=== PATIENT | female | born 1995 | race Caucasian/White ===

== ENCOUNTER → 2016-08-23 | Outpatient (CLI) | payer BC ==
--- NOTE | 2016-08-23 16:33 | DIAGNOSTIC IMAGING REPORT ---
PA CHEST WITH LEFT-SIDED RIB SERIES CLINICAL HISTORY: Left-sided chest wall mass. FINDINGS: A PA chest radiograph with 4 additional views from a left-sided rib series is compared to study dated 06/26/2011. The cardiomediastinal silhouette is unremarkable. The lungs and pleural spaces are clear. No pneumothorax is seen. The left ribs are normal on the rib series. The remainder of the bony thorax is grossly intact. IMPRESSION: 1. No active disease in the chest. 2. Unremarkable radiographic assessment of the left ribs. No change from the 06/26/2011 examination. Electronically signed by: Anthony Rust M.D. 08/23/2016 4:32 PM Dictated Date/Time: 08/23/2016 4:30 PM
== END | disposition home or self-care (01) ==
LOC: C.RAD 16:02
PROVIDERS: ATTEND Nurse Practitioner Family
DX: R22.2 Localized swelling, mass and lump, trunk (principal)

== ENCOUNTER → 2016-10-02 | Outpatient (CLI) | payer BC ==
--- NOTE | 2016-10-02 13:03 | DIAGNOSTIC IMAGING REPORT ---
(CHEST) THORAX WITHOUT CLINICAL HISTORY: 20 years-old Female presenting with MASS ON CHEST. TECHNIQUE: Multidetector CT angiography was performed without the use of intravenous contrast. IV contrast: None. COMPARISON: None. CT DOSE: The estimated cumulative dose is 175.02 mGycm. FINDINGS: [facility] topogram: Unremarkable On soft tissue windows, normal thyroid and thoracic inlet. No axillary, supraclavicular, or mediastinal lymphadenopathy. Evaluation for hilar lymphadenopathy is limited without use of intravenous contrast. Normal heart size. No pericardial or pleural effusion. Normal noncontrast appearance of the upper abdomen. The chest wall is normal appearing with normal breast tissue. No chest wall mass identified. On lung windows, few polygonal subpleural opacities in the right middle lobe, the largest measuring 4 mm (series 4 image 199). No other focal infiltrate. Airways patent. On bone windows, benign hemangioma noted in the T6 vertebral body. Osseous structures otherwise normal. IMPRESSION: No acute intrathoracic pathology. No chest wall mass. Electronically signed by: Sukhdev Santamaria 10/02/2016 1:02 PM Dictated Date/Time: 10/02/2016 12:51 PM
== END | disposition home or self-care (01) ==
LOC: C.CTS 12:01
PROVIDERS: ATTEND Nurse Practitioner Family
DX: R22.2 Localized swelling, mass and lump, trunk (principal)

== ENCOUNTER → 2016-10-16 | Outpatient (CLI) | payer BC ==
--- NOTE | 2016-10-16 15:02 | DIAGNOSTIC IMAGING REPORT ---
BONE SCAN WHOLE BODY HISTORY: Nodule pain RADIOTRACER: 25.114 mCi Tc-99m MDP STUDY/IMAGES: Planar anterior and posterior whole body imaging was performed 3 hours following the intravenous administration of radiotracer. COMPARISON: CT same date FINDINGS: Increased activity of several ribs bilaterally. This involves the anterior left sixth seventh and ninth ribs. There is also increased activity of the right anterior 10th and 12th ribs. Given the linear configuration of these findings these are felt to be posttraumatic. Activity characteristics of the remainder the axial and appendicular skeleton appear unremarkable. There is no abnormal soft tissue activity characteristics. IMPRESSION: Increased activity of several anterior ribs bilaterally as described. It is presumed to be posttraumatic in nature. The above report was generated using voice recognition software. It may contain grammatical, syntax or spelling errors. Electronically signed by: Heron Ford M.D. 10/16/2016 3:01 PM Dictated Date/Time: 10/16/2016 2:58 PM
== END | disposition home or self-care (01) ==
LOC: C.NUCL 10:51
PROVIDERS: ATTEND Family Medicine
DX: R22.2 Localized swelling, mass and lump, trunk (principal)

== ENCOUNTER 2021-08-08 07:44 | Inpatient (IN) ==
[2021-08-08] MEDS ORDERED: OXYTOCIN 30 UNITS/500 ML BAG IV PRN ×3 (07:46→14:55)
--- NOTE | 2021-08-08 08:12 | History & Physical Report ---
Date of Service August 08, 2021 Assessment & Plan (1) IUGR (intrauterine growth restriction) affecting care of mother: Plan: 25 y/o G1 at 37 1/7 wga presenting for IOL for severe FGR VSS Fetus cat 1 Labor - will start pit GBS neg epidural PRN Admission and Anticipated Discharge Date Admission Date: August 08, 2021 History of Present Illness Chief Complaint: IOL for severe FGR Primary Care Provider: NO PCP 25 y/o G1 at 37 1/7 wga presents for IOL for severe FGR. 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 Hx: G1 q28-29d cycles 04/2018 neg cyto Allergies Allergy/AdvReac Type Severity Reaction Status Date / Time banana Allergy Intermediate Swelling Verified 08/04/21 10:40 around Lips to Nose Home Medications Medication Instructions Recorded Confirmed Type prenat.vits,donny,[id number]-cngl-mptto 1 tab PO DAILY 06/07/21 08/04/21 History iron polysacch cplx 150 mg 1 cap PO DAILY #30 cap 06/13/21 08/04/21 Rx iron-vit B12 25 mcg-folic acid 1 mg capsule (iFerex) Patient History Medical History No chronic diseases present Surgical History No significant past surgical history Family History Other Colorectal cancer Diabetes Endometriosis Heart disease Multiple sclerosis Social History Smoking Status: Current every day smoker Tobacco Type: Cigarettes and E-cigarettes / Vaping Cigarettes Per Day: 10; Second Hand Exposure: Yes; Hx Alcohol Use: No Hx Substance Use: No Preferred Language: Italian marital status: Single marital status details: Wojciech Muniz [phone] Current Living Situation: Significant Other Current Living Situation Comment: lives with FOB, 1 dog. current occupational status: unemployed Feels Safe at Home: Yes Physical Exam Genitourinary: OB Exam Abdomen: + vertex and + estimated weight (5-6) Manual OB Exam: + cervical dilation 3 cm, + cervical effacement 70% and + station -2 OB Exam Monitor Tracing: + external FHT monitor used, + external uterine monitor used (irreg ctx) and + category I (140/mod/+accel/-decel) Results & Data ([facility]) Vital Signs (Past 12 Hours) Vital Signs Pulse BP 08/08/21 07:53 102 H 123/80 Laboratory Results OB Labs: Blood Type O Positive 06/07/21 Antibody Screen NEGATIVE 06/07/21 Hemoglobin 11.4 g/dL (12.0-16.0) L 06/07/21 Hematocrit 35.0 % (37-47) L 06/07/21 Mean Corpuscular Volume 89.5 fL (80-100) 06/07/21 Platelet Count 261 K/uL (130-400) 06/07/21 Rubella IgG Antibody Immune (Immune) 06/07/21 Rapid Plasma Reagin Nonreactive (Nonreactive) 06/07/21 Glucose 1 Hour 50 gm Load 114 mg/dl (70-130) 06/07/21 OB Optional Labs: Chlamydia trachomatis RNA NOT DETECTED (NOT DETECTED) 06/13/21 Neisseria gonorrhoeae RNA NOT DETECTED (NOT DETECTED) 06/13/21 GBS neg Diagnostic Findings 08/04 EFW 2122 <2%, AC <2% Coding Level of Care Code None Diagnoses IUGR (intrauterine growth restriction) affecting care of mother O36.5990
[2021-08-08 08:28] LABS: Hematocrit (blood only) 34.1 % (37-47); Mean Corpuscular Hemoglobin 27.8 pg (25-34); Mean Corpuscular Hgb Conc 32.3 g/dL (32-36); Mean Corpuscular Volume 86.3 fL (80-100); Mean Platelet Volume 11.4 fL (7.4-10.4); Platelet Count 251 K/uL (130-400); RDW Coefficient of Variation 14.3 % (11.5-14.5); RDW Standard Deviation 45.1 fL (36.4-46.3); Red Blood Count 3.95 M/uL (4.2-5.4)
[2021-08-08] MEDS: LACTATED RINGER'S 1,000 ML IV PRN ×2 (08:45→10:53)
[2021-08-08] MEDS ORDERED: BUPIVACAINE 0.25% 30 ML VIAL ONE ×2 (10:05→13:21)
[2021-08-08] MEDS ORDERED: fentaNYL citrate 100 MCG/2 ML VIAL ONE (10:05)
[2021-08-08] MEDS ORDERED: SODIUM CHLORIDE 0.9% INJ 10 ML VIAL ONE (10:05)
[2021-08-08] MEDS ORDERED: ePHEDrine sulfate 50 MG/ML AMP ONE (10:05)
[2021-08-08] MEDS ORDERED: fentaNYL 2MCG/ML ROPIVACAINE 1.25MG/ML 100 ML BAG EPI ONE (10:06)
[2021-08-08] MEDS ORDERED: ePHEDrine sulfate 50 MG/ML AMP IV PRN (10:20)
[2021-08-08] MEDS ORDERED: ONDANSETRON INJ 2 MG/ML 2 ML VIAL IV PRN (10:20)
[2021-08-08] MEDS ORDERED: NALOXONE HCL 1 MG in SODIUM CHLORIDE 0.9% 1000ML 1,000 ML IV PRN (10:20)
[2021-08-08] MEDS ORDERED: diphenhydrAMINE 50 MG/ML VIAL IV PRN (10:20)
[2021-08-08] MEDS ORDERED: NALOXONE HCL 0.4 MG/1 ML VIAL/CARP IV PRN (10:20)
[2021-08-08] MEDS ORDERED: NALBUPHINE HCL INJ 10 MG/ML AMP IV PRN (10:20)
[2021-08-08] MEDS ORDERED: fentaNYL 2MCG/ML ROPIVACAINE 1.25MG/ML 100 ML BAG EPI PRN (10:20)
--- NOTE | 2021-08-08 10:21 | Anesthesiology Consultation ---
Date of Service August 08, 2021 Assessment & Plan (1) Encounter for pre-operative examination: Chart Review Chart Review: Patient NOT seen in Pre Admission Testing and Acceptable Risk for Labor Epidural Consults Requested none History Height/Weight Height: 5 ft 2 in Weight: 53.524 kg Allergies Allergy/AdvReac Type Severity Reaction Status Date / Time banana Allergy Intermediate Swelling Verified 08/04/21 10:40 around Lips to Nose Medications Home Medications Medication Instructions Recorded Confirmed Last Taken prenat.vits,donny,xzx-emza-womos 1 tab PO DAILY 06/07/21 08/08/21 08/05/21 Active Medications Generic Name Dose Route Start Last Admin Trade Name Freq PRN Reason Stop Dose Admin Oxytocin 30 units in 500 mls @ 2 mls/hr 08/08/21 07:46 08/08/21 09:34 Pitocin IV 08/10/21 07:45 0.12 units/hr .Q24H PRN 2 mls/hr Labor Induction/Augmentation Administration Protocol 0.12 UNITS/HR Lactated Ringer's 1,000 mls @ 125 mls/hr 08/08/21 07:46 08/08/21 08:45 Lr IV 08/10/21 07:45 125 mls/hr .Q8H PRN Administration L&D Protocol Protocol Past Medical History Medical History No chronic diseases present high functioning autism Exercise / Class Metabolic Activity II 4-5 Yardwork/Stairs/Walk up hill Past Family History Family History Other Colorectal cancer Diabetes Endometriosis Heart disease Multiple sclerosis Past Surgical History Surgical History No significant past surgical history Past Anesthesia History No Hx of Anesthesia Complications and No Family Hx of Anesthesia Complications Social History Smoking Status: Current every day smoker tobacco type: cigarettes Smoking cigarettes per day: 10 Hx Alcohol Use: No Hx Substance Use: No substance use type: does not use Physical Exam Vital Signs Last Vital Signs Temp 36.9 C 08/08/21 08:04 Pulse 116 H 08/08/21 10:42 Resp 18 08/08/21 08:04 BP 135/95 08/08/21 10:41 Pulse Ox 97 08/08/21 10:42 Testing Laboratory Results 08/08/21 08:10
--- NOTE | 2021-08-08 12:10 | Labor Progress Brief Note ---
Date of Service August 08, 2021 Subjective Reason For Note: Routine Evaluation comfortable with epidural analgesia Assessment & Plan (1) IUGR (intrauterine growth restriction) affecting care of mother: Plan: AROM for clear fluid contiue pitocin induction Admission and Anticipated Discharge Date Admission Date: August 08, 2021 Physical Exam Constitutional: WD/WN, vitals as above Psychiatric: A+Ox3, euthymic affect Genitourinary: OB Exam Abdomen: + vertex and + regular contractions (3-5 minutes) Manual OB Exam: + cervical dilation 3 cm, + cervical effacement 70% and + station -1 OB Exam Monitor Tracing: + external FHT monitor used, + external uterine monitor used, + category I and + normal FHT variability AROM for clear fluid Results & Data ([facility]) Vital Signs (Past 12 Hours) Vital Signs Temp Pulse Resp BP Pulse Ox 08/08/21 12:02 101 H 100 08/08/21 11:57 98 H 114/76 100 08/08/21 11:52 87 99 08/08/21 11:47 90 100 08/08/21 11:42 107 H 117/68 100 08/08/21 11:37 99 H 100 08/08/21 11:32 97 H 100 08/08/21 11:30 97.9 F 18 08/08/21 11:27 98 H 120/70 99 08/08/21 11:22 101 H 100 08/08/21 11:17 92 H 99 08/08/21 11:12 91 H 100 08/08/21 11:11 96 H 116/81 08/08/21 11:09 116 H 109/72 08/08/21 11:08 103 H 104/59 L 08/08/21 11:07 104 H 99 08/08/21 11:03 113 H 102/67 08/08/21 11:02 117 H 100 08/08/21 11:01 99 H 94/59 L 08/08/21 10:59 97 H 107/66 08/08/21 10:57 111 H 102/59 L 99 08/08/21 10:55 98 H 18 103/56 L 08/08/21 10:53 99 H 18 108/64 08/08/21 10:52 101 H 98 08/08/21 10:51 110 H 18 113/67 08/08/21 10:49 102 H 18 111/57 L 08/08/21 10:47 122 H 18 117/58 L 99 08/08/21 10:45 96 H 18 123/57 L 08/08/21 10:42 116 H 97 08/08/21 10:41 110 H 135/95 08/08/21 10:37 141 H 95 08/08/21 10:32 123 H 99 08/08/21 10:31 116 H 132/89 08/08/21 10:27 95 H 99 08/08/21 08:04 98.4 F 18 08/08/21 07:53 98.4 F 102 H 18 123/80 Coding Level of Care Code None Diagnoses IUGR (intrauterine growth restriction) affecting care of mother O36.5990
[2021-08-08] MEDS ORDERED: HYDROCORTISONE ACETATE 25 MG SUPP PR PRN (14:55)
[2021-08-08] MEDS ORDERED: DIPHTHERIA/TETANUS/PERTUSSIS 0.5 ML SYR/VIAL IM ONE (14:55)
[2021-08-08] MEDS ORDERED: BENZOCAINE 20% AER SPR 82.5 GM CAN EXT PRN (14:55)
[2021-08-08] MEDS ORDERED: bisacodyL 10 MG SUPP PR PRN (14:55)
[2021-08-08] MEDS ORDERED: ACETAMINOPHEN 325 MG TAB PO PRN (14:55)
--- NOTE | 2021-08-08 15:23 | Delivery Summary ---
Vaginal Delivery Summary Date of Service August 08, 2021 Vaginal Delivery Summary VAVD and 1st Degree LAC Patient is a 25-year-old mildly autistic nulligravida white female who presented for induction of labor because of severe IUGR at 37-1/7 weeks. After Pitocin augmentation was begun she requested epidural analgesia which was effective. Membranes were ruptured for clear fluid at 4 cm dilation. She became very uncomfortable again and her epidural was redosed. Shortly after the redosing, she was noted to be fully dilated with the head at +1 station. At this point there were moderate to severe variables with each contraction to 60 bpm. There was good recovery in between the contractions. Patient was coached on pushing but had no sensation and therefore was not able to push effectively. The head came down almost purely with contractile force to +3 station. The severe vari cristina continued and because of poor maternal effort, it was felt prudent to proceed with vacuum-assisted delivery. Patient was agreeable to proceeding in this manner. Straight catheterization of the bladder was attempted but because the head was low, the catheter could not be advanced. The vacuum was then placed on the head taking care to be free of the vaginal bray. With the next contraction the head was delivered to . There was no nuchal cord present. Rest of the was delivered easily and placed on the mother's abdomen for further attention and drying. The infant was crying and moving all 4 limbs. After 1 minute the cord was clamped and cut. The placenta was then expressed intact with a three-vessel cord after cord blood was obtained. A first-degree perineal laceration was repaired with 3-0 chromic in the usual fashion. bleeding was controlled with dilute Pitocin and fundal massage. Estimated blood loss is 250 cc. Mother and were doing well after delivery. [place] Vaginal Delivery Charge Delivery Type Details: VAVD and 1st Degree LAC
--- NOTE | 2021-08-08 17:15 | Anesthesia Procedure Note ---
Date of Service August 08, 2021 Anesthesia Post Epidural Note Vital Signs Vital Signs: Temp Pulse Resp BP Pulse Ox 36.6 C 111 H 18 118/75 89 L 08/08/21 11:30 08/08/21 17:11 08/08/21 15:35 08/08/21 17:11 08/08/21 14:28 Pain Intensity Back: Pain Intensity: 9 Notes Mental Status: alert / awake / arousable and participated in evaluation Patient Amnestic to Procedure: No Nausea / Vomiting: adequately controlled Pain: adequately controlled Airway Patency, RR, SpO2: stable & adequate BP & HR: stable & adequate Hydration State: stable & adequate Neuraxial Anesthesia: was administered and sensory block is resolving Anesthetic Complications: no major complications apparent and Pt Satisfied with anesthetic care Epidural: Removed without complications and With tip intact
[2021-08-08] MEDS: DOCUSATE SODIUM 100 MG CAP PO SCH (19:43)
[2021-08-08] MEDS: IBUPROFEN 600 MG TAB PO PRN ×2 (19:44→23:51)
[2021-08-09] MEDS: IBUPROFEN 600 MG TAB PO PRN ×3 (04:10→21:34)
--- NOTE | 2021-08-09 06:49 | Obstetrical Progress Note ---
Date of Service <Sony Orona DO - Last Filed: 08/09/21 08:00> August 09, 2021 Assessment & Plan <Sony Orona DO - Last Filed: 08/09/21 08:00> (1) Encounter for care and examination after delivery: 25 yo post day 1 from vaginal delivery, doing well. -Continue routine post care. -vital signs reviewed and WNL. (Tmax 37.0) -Blood type O+, GBS negative, Rubella immune -Encourage ambulation, monitor and control pain with Motrin, tylenol PRN, resume regular diet, monitor lochia. -encourage breast feeding. -Case management involved for complex situation for discharge. <Claudy Davies MD - Last Filed: 08/09/21 08:14> (1) Encounter for care and examination after delivery: Subjective <Sony Orona DO - Last Filed: 08/09/21 08:00> Ambulation: ambulating normally Voiding: no voiding problems Passing Gas:: Yes Diet Tolerance:: regular diet Lochia:: Small Feeding Type:: breast feeding Current Pain Level(1-10): 0 Review of Systems Denies fever, chills, sweats Denies shortness of breath, difficulty breathing, chest pain, palpitations, chest pressure. Denies breast pain. Denies dysuria. Denies headache or changes in vision Physical Exam <Sony Orona DO - Last Filed: 08/09/21 08:00> General: Alert, oriented. No acute distress. Cardiac: Regular rate and rhythm, no murmurs/rubs/gallops. Respiratory: Clear to auscultation bilaterally a/p, no wheezes/rales/rhonchi. No increased work of breathing. Symmetrical chest rise. No respiratory distress. Abdomen: Soft, nontender, nondistended. Bowel sounds present. Uterus: Uterine fundus firm, palpable 1 cm below umbilicus. Lower Extremities: No lower extremity edema or swelling. No deep calf pain. Malu's negative bilaterally Results & Data ([facility]) <Sony Orona DO - Last Filed: 08/09/21 08:00> Vital Signs (Past 12 Hours) Vital Signs Temp Pulse Resp BP Pulse Ox 08/09/21 04:00 36.5 C 79 16 102/77 100 08/08/21 23:00 36.8 C 103 H 16 116/68 98 08/08/21 20:00 36.8 C 98 H 16 118/78 99 <Claudy Davies MD - Last Filed: 08/09/21 08:14> Co-Signing Physician Notes Patient seen and evaluated and agree with the above findings and plan. Routine care. Social work involved with discharge planning. Resident Activity Tracking <Sony Orona DO - Last Filed: 08/09/21 08:00> Resident Involvement: Resident Care Provided Care Provided: OB Delivery
[2021-08-09 08:03] LABS: Hematocrit (blood only) 32.2 % (37-47); Hemoglobin 10.3 g/dL (12.0-16.0); Mean Corpuscular Hemoglobin 27.2 pg (25-34); Mean Corpuscular Volume 85.2 fL (80-100); Mean Platelet Volume 11.4 fL (7.4-10.4); Platelet Count 212 K/uL (130-400); RDW Coefficient of Variation 14.6 % (11.5-14.5); RDW Standard Deviation 45.7 fL (36.4-46.3); Red Blood Count 3.78 M/uL (4.2-5.4); White Blood Count 19.69 K/uL (4.8-10.8)
[2021-08-09] MEDS: PRENATAL VITAMIN 1 TAB PO SCH (09:05)
[2021-08-09] MEDS: FERROUS SULFATE 325 MG TAB PO SCH (09:05)
[2021-08-09] MEDS: DOCUSATE SODIUM 100 MG CAP PO SCH ×2 (09:05→21:34)
[2021-08-09] MEDS ORDERED: bisacodyL 5 MG TABEC PO SCH (20:00)
[2021-08-10] MEDS: IBUPROFEN 600 MG TAB PO PRN ×3 (04:05→15:07)
--- NOTE | 2021-08-10 06:23 | Obstetrical Progress Note ---
Date of Service <Sony Oroan DO - Last Filed: 08/10/21 08:09> August 10, 2021 Assessment & Plan <Sony Orona DO - Last Filed: 08/10/21 08:09> (1) Encounter for care and examination after delivery: 25 yo post day 2 from vaginal delivery, doing well. -Continue routine post care. -vital signs reviewed and WNL. (Tmax 37.0) -Blood type O+, GBS negative, Rubella immune -Encourage ambulation, monitor and control pain with Motrin, tylenol PRN, resume regular diet, monitor lochia. -encourage breast feeding. -Case management involved for complex situation for discharge. CYS to follow closely upon discharge to ensure safety of , patient set up with [facility] home health for assistance. -Patient will follow up with Dr. Soler in clinic in 6 weeks. <Betsy Alcantara MD, FACOG - Last Filed: 08/10/21 08:15> (1) Encounter for care and examination after delivery: Subjective <Sony Orona DO - Last Filed: 08/10/21 08:09> Ambulation: ambulating normally Voiding: no voiding problems Passing Gas:: Yes Diet Tolerance:: regular diet Lochia:: Small Feeding Type:: breast feeding Current Pain Level(1-10): 0 Review of Systems Denies fever, chills, sweats Denies shortness of breath, difficulty breathing, chest pain, palpitations, chest pressure. Denies breast pain. Denies dysuria. Denies headache or changes in vision Physical Exam <Sony Orona DO - Last Filed: 08/10/21 08:09> General: Alert, oriented. No acute distress. Cardiac: Regular rate and rhythm, no murmurs/rubs/gallops. Respiratory: Clear to auscultation bilaterally a/p, no wheezes/rales/rhonchi. No increased work of breathing. Symmetrical chest rise. No respiratory distress. Abdomen: Soft, nontender, nondistended. Bowel sounds present. Uterus: Uterine fundus firm, palpable 2 cm below umbilicus. Lower Extremities: No lower extremity edema or swelling. No deep calf pain. Malu's negative bilaterally Results & Data ([facility]) <Sony Orona DO - Last Filed: 08/10/21 08:09> Vital Signs (Past 12 Hours) Vital Signs Temp Pulse Pulse Resp BP Pulse Ox 08/10/21 00:40 36.8 C 85 20 103/64 98 08/09/21 20:55 36.8 C 100 H 20 109/72 100 <Betsy Alcantara MD, FACOG - Last Filed: 08/10/21 08:15> Co-Signing Physician Notes Resident Physician Supervision Note: I interviewed and examined the patient. Discussed with Dr. Felix and agree with findings and plan as documented in the note. Any exceptions or blaire fications are listed here: Plan d/c today. CYS and social worker school involved. Plan for baby to go home with patient and CYS closely following. Discussed d/c instructions. Encouraged to call with any concerns. Documented By: Betsy Alcantara MD, FACOG Resident Activity Tracking <Sony Orona DO - Last Filed: 08/10/21 08:09> Resident Involvement: Resident Care Provided Care Provided: OB Delivery
[2021-08-10 06:44] LABS: Hematocrit (blood only) 33.2 % (37-47); Hemoglobin 10.5 g/dL (12.0-16.0)
[2021-08-10] MEDS: PRENATAL VITAMIN 1 TAB PO SCH (09:03)
[2021-08-10] MEDS: DOCUSATE SODIUM 100 MG CAP PO SCH (09:03)
[2021-08-10] MEDS: FERROUS SULFATE 325 MG TAB PO SCH (09:03)
== END 2021-08-10 19:45 | disposition home or self-care (01) | DRG 806 ==
LOC: 4S1 07:44 → 4E2 17:59

== ENCOUNTER 2024-05-13 17:54 | Inpatient (IN) ==
[2024-05-13] MEDS: OXYTOCIN 10 UNITS/ML VIAL IM ONE (18:06)
[2024-05-13] MEDS: METHYLERGONOVINE MALEATE 0.2 MG/ML AMP ONE (18:11)
[2024-05-13] MEDS: OXYTOCIN 30 UNITS/NSS 30 UNITS/500 ML BAG IV PRN (18:20)
[2024-05-13] MEDS ORDERED: METHYLERGONOVINE MALEATE 0.2 MG/ML AMP IM PRN (18:27)
[2024-05-13] MEDS ORDERED: LIDOCAINE 1% LOCAL 20 ML VIAL INFIL PRN (18:27)
[2024-05-13] MEDS ORDERED: LACTATED RINGER'S 1,000 ML IV PRN (18:27)
[2024-05-13] MEDS ORDERED: CALCIUM CARBONATE 500 MG CHEWABLE TAB PO PRN (18:27)
[2024-05-13] MEDS ORDERED: HYDROCORTISONE ACETATE 25 MG SUPP PR PRN (18:30)
[2024-05-13] MEDS ORDERED: OXYTOCIN 30 UNITS/NSS 30 UNITS/500 ML BAG IV PRN (18:30)
[2024-05-13] MEDS ORDERED: bisacodyL 10 MG SUPP PR PRN (18:30)
[2024-05-13] MEDS ORDERED: OXYTOCIN 10 UNITS/ML 10ML VIAL IM ONE (18:30)
[2024-05-13] MEDS ORDERED: oxyCODONE/ACETAMINOPHEN 5mg/325mg TAB PO PRN (18:30)
--- NOTE | 2024-05-13 18:36 | Delivery Summary ---
Vaginal Delivery Summary Date of Service May 13, 2024 Vaginal Delivery Summary Patient is a 2 para 2 followed at [facility] for care and delivery. Been well dated with a first trimester ultrasound. Comes in at a gestational age of 37 weeks 1 day. Head was on the perineum she had a precipitous delivery. With IM Pitocin the placenta was removed intact. There was a right sided periurethral laceration. And a small midline laceration. Both of these areas were infiltrated with local. And then the defects were approximated with a running 2-0 Vicryl. Following this hemostasis was achieved. A Landa catheter was used to empty the bladder. Calculated blood loss was 100 mL. Patient tolerated procedure well.
[2024-05-13] MEDS: LIDOCAINE 1% LOCAL 20 ML VIAL ONE (18:40)
[2024-05-13] MEDS: METHYLERGONOVINE MALEATE 0.2 MG/ML AMP IM ONE (18:43)
[2024-05-13] MEDS: ACETAMINOPHEN W/CODEINE #3 1 TAB PO PRN (19:08)
[2024-05-13] MEDS: DIPHTHER/TETAN/PERTUS Vaccine (Tdap, Adol/Adult) 0.5mL IM ONE (19:10)
[2024-05-13 19:28] LABS: Hematocrit (blood only) 37.7 % (37.0-47.0); Hemoglobin 11.3 g/dl (12.0-16.0); Mean Corpuscular Hemoglobin 24.8 pg (25.0-34.0); Mean Corpuscular Volume 82.9 fL (80.0-100.0); Mean Platelet Volume 11.3 fL (9.4-12.4); Platelet Count 299 K/uL (130-400); RDW Coefficient of Variation 17.4 % (11.5-14.5); RDW Standard Deviation 51.8 fL (36.4-46.3); Red Blood Count 4.55 M/uL (4.20-5.40); White Blood Count 33.68 K/ul (4.8-10.8)
[2024-05-13] MEDS: DOCUSATE SODIUM 100 MG CAP PO SCH (21:00)
[2024-05-13] MEDS: BENZOCAINE 20% SPRY 85 APPLN/85 GM CAN EXT PRN (23:43)
--- OUTSIDE RECORDS SUMMARY | 2024-05-14 02:50 | External Medical Summary | Summary of Care ---
Author Name Unknown Organization [facility] Address [address] [place] [address] Phone [phone] Care Team Providers Care Statistician Mathematical Name Role Phone Unavailable Primary Care Provider Unavailabl e Reason for Visit * Reason Onset Date Comments Anemia Follow-Up 04/30/2024 * Evaluate & Treat - Unlimited Visits (Within 10 days (routine)) - Pending Review Specialty Diagnoses / Procedures Referred By Cassy t Referred To Contact Pharmacist / Pharmacy Diagnoses KATHERYN (iron deficiency anemia) Grace Rain CRNP [address] [place] [address] Phone: tel: fax: Referral ID Status Reason Start Date Expiration Date Visits Requested Visits Authorized [id number] Pending Review Specialty Services Required 04/24/2024 10/21/[phone] Encounter Details Date Type Department Care Team (Late st Contact Info) Description 04/30/2024 4:00 PM EST Pharmacy Pharmacy, [facility] [address] [place], [place] [id number] Clinic, Anemia [address] [place] [address] Iron deficiency anemia, unspecified iron deficiency anemia type* Allergies Active Allergy Reactions Criticality Noted Date Comments Food (See Comments) 08/11/2003 Banana allergy documented as of this encounter (statuses as of 05/01/2024) Medications Forte Oral Tablet Take by mouth. Active Iron-Vitamin C 65-125 MG Oral Tablet (Vitron C)Indications:Ant epartum anemia complicating Take 1 Tablet by mouth in the morning and 1 Tablet before bedtime. 60 Tablet 3 4 Active documented as of this encounter (statuses as of 05/01/2024) Active Problems Problem Noted Date Diagnosed Date Iron deficiency anemia 04/30/2024 Food insecurity 04/07/2024 Overview: Per [facility] Protocol Antepartum anemia complicating 024 Overview (02/14/2024): Hgb 11.0, Ferrtin 11 with NOB at 23 weeks. Started on Vitron C BID Repeat labs with third tri labs Short cervix during in second trimeste r 02/13/2024 Overview (02/13/2024): Cervix 2 cm with dating ultrasound at 23 weeks. Reviewed with patient. Discussed increase risk of labor and demise with prematurity. Recommended MFM referral, she was agreeable. Assessment & Plan (03/04/2024 11:57 AM EST): At your request, Livia was seen today due to short cervix seen on outside imaging. Report and images reviewed. Cervix ~2 cm at that time. Today cervix relatively stable at 1.8 cm without funneling. First delivery at [facility]; unsure exact gestational age but "near term" and weight 5#3 oz. We reviewed that based on current gestational age, no indication for ongoing cervical evaluation as there is no indication for intervention (cerclage/progesterone) at this time. PTL/PPROM precautions given and Livia encouraged to communicate any s/sx with her OB team as physical exam will be more important High-risk 02/13/2024 History of delivery, currently 02/13/2024 Overview (02/13/2024): Last delivery at [place]. From dates given pt would have delivered at 36w6d. Late care affecting in second trimester 02/13/2024 Overview (02/13/2024): NOB at 23 weeks Tobacco use affecting , antepartum 01/25 Overview (02/13/2024): Has cut back. Recommended she quit. Smoking 1 cigar a day at NOB Estimated Date of Delivery Comme nts Yes 06/11/2024 Based on Ultraso und documented as of this encounter (statuses as of 05/01/2024) Immunizations Name Administration Dates Next Due Hepatitis A, Ped/Adol., 18 y ear and below, 2-Dose 09/29/2005 Seasonal Influenza Vac., MDV , IM, 0.5 mL (Fluzone) 01/05/2011,01/28/2010,02/05/2007, 006 TDAP, Age 7 and older, IM (Adacel) 09/29/2005 Varicella Vaccine (Chicken Pox) 06/16/2011 documented as of this encounter Social History Tobacco Use Types Packs/Day Years Used Date Smoking Tobacco: Never Smokeless Tobacco: Never Alcohol Use Standard Drinks/Week Comments Not Asked 0 (1 standard drink = 0.6 oz pur e alcohol) Hunger Vital Sign Answer Date Recorded Within the past 12 months, y ou worried that your food would run out before you got the money to buy more. Sometimes true Within the past 12 months, t he food you bought just didn't last and you didn't have money to get more. Sometimes true [place] Depression Scale Answer Date Recorded [place] Depression Scale Total 13 04/17/2024 The thought of harming myself has occurred to me . Never 04/17/2024 Childcare Answer Date Recorded Do you feel overwhelmed with taking care of a child, family member or friend? Yes 03/12/2024 Does your family need help f inding childcare? (Household - for ages 0-17 years) Not on file 03/12/2024 Clothing Answer Date Recorded Have you been unable to get clothing when it was really needed? No 03/12/2024 Is your family able to get c lothes or diapers when needed? (Household - for ages 0-17 years) Not on file 03/12/2024 Personal Safety Answer Date Recorded Do you feel unsafe or have concerns for your saf ety? No 03/12/2024 Do you have concerns for you r family's safety? (Household - for ages 0-17 years) Not on file 03/12/2024 Utilities Answer Date Recorded Do you have trouble paying y our heating, water, or electric bill? No 03/12/2024 Is your family able to pay t he heat, water, or electric bill? (Household - for ages 0-17 years) Not on file 03/12/2024 Does your family have access to good internet? (Household - for ages 0-17 years) Not on file 03/12/2024 Employment Status Answer Date Recorded Are you unemployed or without regular income? Ye s 03/12/2024 Does the household have a re gular source of income? (Household - for ages 0-17 years) Not on file 03/12/2024 Social Connections Answer Date Recorded How often do you feel lonely or isolated from th ose around you? Rarely 03/12/2024 Financial Resource Strain Answer Date R ecorded Do you have any trouble payi ng for your medications, or do you think you might in the future? Yes 03/12/2024 Does your family have troubl e paying for medicine? (Household - for ages 0-17 years) Not on file 03/12/2024 Transportation Needs Answer Date Record ed Do you have trouble getting a ride to medical visits or work? (Adult - for ages 18 years and over) Not on file 03/12/2024 Does your family have a hard time getting a ride to doctors visits? (Household - for ages 0-17 years) Not on file 03/12/2024 Has lack of transportation k ept you from medical appointments, meetings, work, or from getting things needed for daily living? Check all that apply. Yes, it has kept me from medical appointments;Yes, it has kept me from non-medical meetings, appointments, work, or from getting things that I need 03/12/2024 Do you (or your family) have trouble finding or paying for a ride (transportation)? (Household - for ages 0-17 years) Not on file 03/12/2024 Housing Stability Answer Date Recorded Do you currently live in a s helter or have no steady place to sleep at night? No 03/12/2024 Do you think you are at risk of becoming homeless? (Adult - for ages 18 years and over) Not on file 03/12/2024 Does your family worry about paying for your home or becoming homeless? (Household - for ages 0-17 years) Not on file 1 05/13/2023 Are you homeless or worried that you might be in the future? No 03/12/2024 Are you (or your family) denice eless or worried that you might be in the future? (Household - for ages 0-17 years) Not on file Food Insecurity Answer Date Recorded Do you need food for this week? No 03/12/2024 Are you able to get enough f ood for your family? (Household - for ages 0-17 years) Not on file 03/12/2024 Does your family need food t his week? (Household - for ages 0-17 years) Not on file 03/12/2024 Do you always have enough fo od for your family? (Household - for ages 0-17 years) Not on file 03/12/2024 Food Insecurity Answer Date Recorded Within the past 12 months, y ou worried that your food would run out before you got the money to buy more. Sometimes true Within the past 12 months, t he food you bought just didn't last and you didn't have money to get more. Sometimes true Do you need food for this week? No 03/12/2024 Estimated Date of Delivery Comme nts Yes 06/11/2024 Based on Ultraso und Sex and Gender Information Value Date Recorded Sex Assigned at Female 03/12/2024 10:42 AM EST Legal Sex Female 7:13 AM EST Gender Identity Female 03/12/2024 10:42 AM EST Sexual Orientation Choose not to disclose 2023 10:42 AM EST documented as of this encounter Progress Notes * Kellie Oviedo, [facility] - 04/30/2024 3:10 PM EST Patient Phone Numbers [place] [phone] Patient referred by ADRIA Phillips for evaluation of anemia by the Anemia Clinic. Called patient to introduce role/clinic and to review labs from 04/23. LMOVM Hgb: 10.0 g/dL TSAT: 4 % Ferritin: 9 ng/mL GA: 34w0d Estimated Date of Delivery: 06/11/24 Hgb is below target range for the third trimester. Iron studies below target range. Per chart review, patient is taking Vitron C twice daily and appears to be tolerating it well. Oral iron replenishment inadequate or contraindicated. Patient qualifies for IV iron repletion. Tentative Plan: Iron dextran (INFeD) 1000 mg IV x 1 dose @ [facility]. Orders need to be placed and routed to appropriate parties if patient agreeable to intervention. Follow-up labs to be scheduled ~4-6 weeks after iron repletion completed if appropriate prior to delivery. Anemia Clinic will continue to follow. Thank you for allowing us to participate in the care of thispatient. Thanks, Kellie Oviedo [facility] Clinical Pharmacist documented in this encounter Plan of Treatment Upcoming Encounters Date Type Department Care Team (Late st Contact Info) Description 05/01/2024 9:15 AM EST Office Visit Gynecology/Obstetrics [facility] [address] [facility] [place] [address] Clarence Elder MD [address] [facility] [place] [phone] 05/14/2024 4:00 PM EST Pharmacy [facility] [address] [facility] [place] [address] [facility] [address] [facility] [address] Scheduled Referrals Name Type Priority Associated Diagnoses Orde r Schedule PHARMACIST MEDS THERAPY MGMT REFERRAL OP Referral Within 10 days (routine) KATHERYN (iron deficiency anemia) Ordered: 04/24/2024 Health Maintenance Due Date Last Done Comments Depression Screening 2005 COVID-19 Vaccine ( season) 2023 Influenza Vaccine (FLU shot) (#1) 2023 01/05/2011, 01/28/2010, 01/28/2010, Additional history exists Pap Smear 02/27/2027 02/28/2024 Cervical Cancer Screening 02/27/2029 HPV/Co-Test 02/27/2029 02/28/2024 DTap/Tdap Vaccines (7 - Td or Tdap) 06/21/2031 06/20/2021, 09/29/2005, 11/15/1998, Additional history exists Hepatitis B Vaccine Completed 04/24/1994, 04/24/1994, 1993, Additional history exists HPV (Gardasil) Vaccine Aged Out No lo nger eligible based on patient's age to complete this topic MENINGOCOCCAL (MENACTRA/MENVEO) Aged Out No longer eligible based on patient's age to complete this topic Pneumococcal Vaccine: Pediatrics (0 to 5 Years) and At-Risk Patients (6 to 18 Years and 19+ Years) Aged Out No longer eligib le based on patient's age to complete this topic documented as of this encounter Goals Goal Patient Goal Type Associated Problems Recent Progress Patient-Stated? Author Reminders Care Plan OB Reminders No Mychart, Provider documented as of this encounter Medical Devices Not on filedocumented as of this encounter Visit Diagnoses Diagnosis Short cervix during in second trimester- Primary 25 weeks gestation of state, incidental Encounter for anatomic survey Iron deficiency anemia, unspecified iron deficiency anemia type- Primary documented in this encounter Additional Health Concerns Active Problems Noted Date Diagnosed Date OB Reminders 03/04/2024 documented as of this encounter
--- OUTSIDE RECORDS SUMMARY | 2024-05-14 02:50 | External Medical Summary | Summary of Care ---
Author Name Unknown Organization [facility] Address [address] [place] [address] Phone [phone] Care Team Providers Care Cone Former Name Role Phone Unavailable Primary Care Provider Unavailabl e Reason for Visit * Reason Comments Return Visit Encounter Details Date Type Department Care Team (Late st Contact Info) Description 05/05/2024 12:00 PM EST Office Visit Gynecology/Obstetric s [facility] [address] [facility] [place] [address] Luci Thompson, DNP, CN [address] [facility] [address] Short cervix during in second trimester*; High risk , antepartum; History of delivery, currently ; Late care affecting in second trimester; Tobacco use affecting , antepartum; Antepartum anemia complicating Allergies Active Allergy Reactions Criticality Noted Date Comments Food (See Comments) 08/11/2003 Banana allergy documented as of this encounter (statuses as of 05/05/2024) Medications Forte Oral Tablet Take by mouth. Active Iron-Vitamin C 65-125 MG Oral Tablet (Vitron C)Indications:Ant epartum anemia complicating Take 1 Tablet by mouth in the morning and 1 Tablet before bedtime. 60 Tablet 3 4 Active documented as of this encounter (statuses as of 05/05/2024) Active Problems Problem Noted Date Diagnosed Date [...] 1.8 cm without funneling. First delivery at [facility]; unsure exact gestational age but "near term" and infant weight 5#3 oz. We reviewed that based on current gestational age, no indication for ongoing cervical evaluation as there is no indication for intervention (cerclage/progesterone) at this time. PTL/PPROM precautions given and Livia encouraged to communicate any s/sx with her OB team as physical exam will be more important High-risk 02/13/2024 History of delivery, currently 02/13/2024 Overview (02/13/2024): Last delivery at [facility]. From dates given pt would have delivered at 36w6d. Late care affecting in second trimester 02/13/2024 Overview (02/13/2024): NOB at 23 weeks Tobacco use affecting , antepartum 01/25 Overview (02/13/2024): Has cut back. Recommended she quit. Smoking 1 cigar a day at NOB Estimated Date of Delivery Comme nts Yes 06/11/2024 Based on Ultraso und documented as of this encounter (statuses as of 05/05/2024) Immunizations Name Administration Dates Next Due Hepatitis [...] have money to get more. Sometimes true [place] Depression Scale Answer Date Recorded [place] Depression Scale Total 13 04/17/2024 The thought [...] AM EST documented as of this encounter Last Filed Vital Signs Vital Sign Reading Time Taken Comments Blood Pressure 104/68 05/05/2024 12:15 PM EST Pulse - - Temperature - - Respiratory Rate - - Oxygen Saturation - - Inhaled Oxygen Concentration - - Weight 55.6 kg (122 lb 9.6 oz) 05/05/2024 12:15 PM EST Height - - Body Mass Index 24.35 05/01/2024 9:15 AM EST documented in this encounter Progress Notes * Luci Thompson, SHANNAN, PHOEBE - 05/05/2024 12:22 PM EST 34w5d Pt reports she is feeling nauseous "hit and miss," reports the nausea occurs when she is getting heartburn. Encouraged Tums as she has not tried anything. Active movement. PT is aware that she is to have iron transfusion, states she is awaiting a call for it to be scheduled. Plans depo for pp contraception. Discussed upcoming GBS culture. Reviewed labor precautions, kick counts, loss of fluid, vaginal bleeding, round ligament pain, and encouraged hydration. Watch fundal height, was 2cm behind today (MFM US on 04/03/2024 reported EFW of 16%). RTO at 36w * Kenya العراقي CMA - 05/05/2024 12:15 PM EST 34w5d + daily vomiting, some improvements. documented in this encounter Plan of Treatment Upcoming Encounters Date Type Department Care Team (Late st Contact Info) Description 05/14/2024 4:00 PM EST Pharmacy Pharmacy, [place] [address] [place] [address] Clinic, [place] [address] [place] [address] 05/15/2024 9:30 AM EST Office Visit Gynecology/Obstetics [address] [phone] Sangita Saleem PA-C [address] [place] [address] Health Maintenance Due Date Last Done Comments [...] of state, incidental Encounter for anatomic survey Short cervix during in second trimester- Primary High risk , antepartum History of delivery, currently with history of pre-term labor Late care affecting in second trimester Tobacco use affecting , antepartum Antepartum anemia complicating Anemia, antepartum documented in this encounter Additional Health Concerns Active Problems Noted Date Diagnosed Date OB Reminders 03/04/2024 documented as of this encounter
--- OUTSIDE RECORDS SUMMARY | 2024-05-14 02:50 | External Medical Summary | Summary of Care ---
Author Name Unknown Organization [facility] Address [address] [place] [address] Phone [phone] Care Team Providers Care Chief Maintenance Supervisor Name Role Phone Unavailable Primary Care Provider Unavailabl e Reason for Visit * Reason Comments Blood Management Program Encounter Details Date Type Department Care Team (Late st Contact Info) Description 04/17/2024 Documentation Patient Blood Management, [place] [address] [place] [address] Kevin Cannon, RN KATHERYN (iron deficiency anemia)* Allergies Active Allergy Reactions Criticality Noted Date Comments Food (See Comments) 08/11/2003 Banana allergy documented as of this encounter (statuses as of 04/24/2024) Medications Forte Oral Tablet Take by mouth. Active Iron-Vitamin C 65-125 MG Oral Tablet (Vitron C)Indications:Ant epartum anemia complicating Take 1 Tablet by mouth in the morning and 1 Tablet before bedtime. 60 Tablet 3 4 Active documented as of this encounter (statuses as of 04/24/2024) Active Problems Problem Noted Date Diagnosed Date Food insecurity 04/07/2024 Overview: Per [facility] [...] 1.8 cm without funneling. First delivery at [facility]; unsure exact gestational age but "near term" [...] currently 02/13/2024 Overview (02/13/2024): Last delivery at [facility]. From dates given pt would have [...] as of this encounter (statuses as of 04/24/2024) Immunizations Name Administration Dates Next Due Hepatitis [...] have money to get more. Sometimes true [place] Depression Scale Answer Date Recorded [place] Depression Scale Total 13 04/17/2024 The thought [...] ages 0-17 years) Not on file 03/12/2024 Estimated Date of Delivery Comme nts Yes 06/11/2024 Based on Ultraso und Sex and Gender Information Value Date Recorded Sex Assigned at Female 03/12/2024 10:42 AM EST Legal Sex Female 7:13 AM EST Gender Identity Female 03/12/2024 10:42 AM EST Sexual Orientation Choose not to disclose 2023 10:42 AM EST documented as of this encounter Progress Notes * Kevin Cannon RN - 04/17/2024 10:12 AM EST REFERRAL - Patient Blood Management Name: Livia Barcenas REQUESTING SERVICE: Brian Conteh OB REASON FOR REFERRAL: new evaluation outpatient, anemia in [place]: 06/11/24 Anemia Evaluation: Latest Reference Range & Units 04/23/24 10:21 HGB 12.0 - 15.3 g/dL 10.0 (L) HCT 36.0 - 45.2 % 32.8 (L) Iron 33 - 151 ug/dL 17 (L) Iron Binding Capacity 250 - 425 ug/dL 452 (H) Transferrin Saturation Percent 15 - 55 % 4 (L) Ferritin 13 - 150 ng/mL 9 (L) Immature Reticuloctye Fraction 2.5 - 20.6 % 29.1 (H) Reticulocyte Hemoglobin 29.7 - 37.4 pg 26.2 (L) Current Patient Medications: Medications that may impair hemostasis: none Medications that may impair iron absorption: none Patient Refused Blood Transfusion? (e.g. Pentecostalism): no Possible Contributing Factors: iron deficiency Treatment Recommendations: Need updated ARCBCD (ordered for cosign) 04/17 - Called patient to discuss recommendations. No answer, left voicemail for return call. 04/23 - repeat blood work obtained 04/24 - Blood work back, per EPIC chart brian morrisons OB discussed IV iron with patient, who is agreeable. OB MTM submitted. Thank you for allowing Blood Management to participate in the care of this patient. documented in this encounter Plan of Treatment Upcoming Encounters Date Type Department Care Team (Late st Contact Info) Description 05/01/2024 9:15 AM EST Office Visit Gynecology/Obstetrics [facility] [address] [place] [address] Clarence Elder MD [address] [place] [phone] Health Maintenance Due Date Last Done Comments Depression Screening 2005 COVID-19 Vaccine (2023- season) 2023 Influenza Vaccine (FLU shot) (#1) [...] of state, incidental Encounter for anatomic survey KATHERYN (iron deficiency anemia)- Primary Iron deficiency anemia, unspecified documented in this encounter Additional Health Concerns Active Problems Noted Date Diagnosed Date OB Reminders 03/04/2024 documented as of this encounter
--- OUTSIDE RECORDS SUMMARY | 2024-05-14 02:50 | External Medical Summary | Summary of Care ---
Author Name Unknown Organization [facility] Address [address] [place] [address] Phone [phone] Care Team Providers Care Birth Certificate Clerk Name Role Phone Unavailable Primary Care Provider Unavailabl e Reason for Visit * Reason Comments Return Visit Encounter Details Date Type Department Care Team (Late st Contact Info) Description 05/01/2024 9:15 AM EST Office Visit Gynecology/Obstetric [facility] [address] [place] [address] Clarence Elder MD [address] [place] [phone] Short cervix during in second trimester*; High-risk in third trimester; History of delivery, currently ; Late care [...] 1.8 cm without funneling. First delivery at [facility]; unsure exact gestational age but "near term" [...] currently 02/13/2024 Overview (02/13/2024): Last delivery at [facility]. From dates given pt would have delivered [...] have money to get more. Sometimes true [place] Depression Scale Answer Date Recorded [place] Depression Scale Total 13 04/17/2024 The thought [...] Sign Reading Time Taken Comments Blood Pressure 104/70 05/01/2024 9:15 AM EST Pulse - - Temperature - - Respiratory Rate - - Oxygen Saturation - - Inhaled Oxygen Concentration - - Weight 54.8 kg (120 lb 12.8 oz) 05/01/2024 9:15 AM EST Height 151.1 cm (4' 11.5") 05/01/2024 9:15 AM ES T Body Mass Index 23.99 05/01/2024 9:15 AM EST documented in this encounter Progress Notes * Clarence Elder MD - 05/01/2024 9:24 AM EST Patient is doing well. No contractions. Good movement. documented in this encounter Nursing Notes * Richa Sanchez LPN - 05/01/2024 9:25 AM EST 34w1d Denies concerns Reports lots of movement documented in this encounter Plan of Treatment Upcoming Encounters Date Type Department Care Team (Late st Contact Info) Description 05/05/2024 12:00 PM EST Office Visit Gynecology/Obstetrics [facility] [address] [place] [address] Luci Thompson, DNP, CN [address] [place] [address] 05/14/2024 4:00 PM EST Pharmacy Pharmacy, [place] [address] [place] [address] Clinic, [place] [address] [place] [address] Health Maintenance Due Date Last Done Comments [...] Author Reminders Care Plan OB Reminders No [place], Provider documented as of this encounter Medical Devices Not on filedocumented as of this encounter Visit Diagnoses Diagnosis Short cervix during in second trimester- Primary 25 weeks gestation of state, incidental Encounter for anatomic survey Short cervix during in second trimester- Primary High-risk in third trimester History of delivery, currently with history of pre-term labor Late care affecting in second trimester Tobacco use affecting , antepartum Antepartum anemia complicating Anemia, antepartum documented in this encounter Additional Health Concerns Active Problems Noted Date Diagnosed Date OB Reminders 03/04/2024 documented as of this encounter
--- OUTSIDE RECORDS SUMMARY | 2024-05-14 02:50 | External Medical Summary | Summary of Care ---
Author Name Unknown Organization [facility] Address [address] [place] [address] Phone [phone] Care Team Providers Care Supervisor Calibration Name Role Phone Unavailable Primary Care Provider Unavailabl e Reason for Referral * Evaluate & Treat - Unlimited Visits (Within 10 days (routine)) - Pending Review Specialty Diagnoses / Procedures Referred By Cassy seaman Referred To Contact Pharmacist / Pharmacy Diagnoses KATHERYN (iron deficiency anemia) Grace Rain CRNP [address] [place] [address] Phone: tel: fax: Referral ID Status Reason Start Date Expiration Date Visits Requested Visits Authorized [id number] Pending Review Specialty Services Required 04/24/2024 10/21/2024 99 99 Question Answer Referral Priority Within 10 days (routine) Where should this appointment be scheduled? [facility] Referring Provider Role: Specialist Specialty: lumber hacker Reason for Referral: Anemia Comments Pharmacist Medication Therapy Management: Iron deficiency anemia Kevin Cannon RN Reason for Visit * Reason Onset Date Comments Blood Management Program 04/24/2024 Encounter Details Date Type Department Care Team (Late st Contact Info) Description 04/24/2024 Telephone Patient Blood Management, [place] [address] [place] [address] Grace Rain CRNP [address] [place] [address] Blood Management Program Allergies Active Allergy Reactions Criticality Noted Date [...] 1.8 cm without funneling. First delivery at [facility]; unsure exact gestational age but "near term" [...] currently 02/13/2024 Overview (02/13/2024): Last delivery at [facility]. From dates given pt would have delivered [...] have money to get more. Sometimes true [place] Depression Scale Answer Date Recorded [place] Depression Scale Total 13 04/17/2024 The thought [...] AM EST documented as of this encounter Miscellaneous Notes * Telephone Encounter - Kevin Cannon RN - 04/24/2024 8:52 AM EST Recommend IV iron per OB MTM guidelines. Patient is agreeable to infusion at [facility]. documented in this encounter Plan of Treatment Upcoming Encounters Date Type Department Care Team (Late st Contact Info) Description 05/05/2024 12:00 PM EST Office Visit Gynecology/Obstetrics [facility] [address] [place] [address] Luci Thompson, SHANNAN, CN [address] [place] [address] 05/14/2024 4:00 PM EST [facility] [address] [place] [address] Clinic, Anemia [address] [place] [address] Scheduled Referrals Name Type Priority Associated Diagnoses [...] Author Reminders Care Plan OB Reminders No Elianet, Provider documented as of this encounter Medical [...]
[2024-05-14] MEDS: IBUPROFEN 600 MG TAB PO PRN (02:51)
--- OUTSIDE RECORDS SUMMARY | 2024-05-14 02:51 | External Medical Summary | Summary of Care ---
Author Name Unknown Organization [facility] Address [address] [place] [address] Phone [phone] Care Team Providers Care Nurse Special Name Role Phone Unavailable Primary Care Provider Unavailabl e Reason for Referral * Evaluate & Treat - Unlimited Visits (Within 10 days (routine)) Specialty Diagnoses / Procedures Referred By Cassy seaman Referred To Contact Pediatric Hematology/Oncology Diagnoses Antepartum anemia complicating Grace Rain CRNP [address] [place] [address] Phone: tel: fax: Referral ID Status Reason Start Date Expiration Date V isits Requested Visits Authorized Specialty Services Required Question Answer Referral Priority Within 10 days (routine) Where should this appointment be scheduled? [facility] Reason for Visit * Reason Comments Return Visit Encounter Details Date Type Department Care Team (Late st Contact Info) Description 04/17/2024 9:15 AM EST Office Visit Gynecology/Obstetric s [facility] [address] [place] [address] Grace Rain CRNP [address] [place] [address] High-risk in third trimester*; History of delivery, currently ; Late care affecting in third trimester; Tobacco use affecting , antepartum; Antepartum anemia complicating ; Cervical shortening in third trimester Allergies Active Allergy Reactions Criticality Noted Date Comments Food (See Comments) 08/11/2003 Banana allergy documented as of this encounter (statuses as of 04/17/2024) Medications Forte Oral Tablet Take by mouth. Active Iron-Vitamin C 65-125 MG Oral Tablet (Vitron C)Indications:Ant epartum anemia complicating Take 1 Tablet by mouth in the morning and 1 Tablet before bedtime. 60 Tablet 3 4 Active documented as of this encounter (statuses as of 04/17/2024) Active Problems Problem Noted Date Diagnosed Date [...] 1.8 cm without funneling. First delivery at [facility]; unsure exact gestational age but "near term" [...] currently 02/13/2024 Overview (02/13/2024): Last delivery at [facility]. From dates given pt would [...] as of this encounter (statuses as of 04/17/2024) Immunizations Name Administration Dates Next Due Hepatitis [...] have money to get more. Sometimes true Childcare Answer Date Recorded Do you feel [...] 03/12/2024 Does the household have a re lar source of income? (Household - for ages [...] Sign Reading Time Taken Comments Blood Pressure 98/56 04/17/2024 8:52 AM EST Pulse - - Temperature - - Respiratory Rate - - Oxygen Saturation - - Inhaled Oxygen Concentration - - Weight 53.1 kg (117 lb) 04/17/2024 8:52 AM EST Height - - Body Mass Index 23.24 02/13/2024 11:06 AM EST documented in this encounter Progress Notes * Grace Rain CRNP - 04/17/2024 8:55 AM EST 32w1d Pt not seen since 03/13. CBC at that time showed Hgb 10.2. Pt states she is taking iron as rx'd. Recommend iron infusions, pt agreeable. Referral placed. Baby is very active. No regular ctx or leaking/bleeding. Some intermittent pelvic pressure, no bladder symptoms. Advised to call if this worsens or is more persistent. Discussed EPDS - pt denies concern for depression or anxiety. 2 week return ADRIA Armstrong * Jessica Cardenas LPN - 04/17/2024 8:53 AM EST 32w1d Denies vaginal bleeding/rom + movement Declines tdap today may consider next visit documented in this encounter Plan of Treatment Upcoming Encounters Date Type Department Care Team (Late st Contact Info) Description 05/01/2024 9:15 AM EST Office Visit Gynecology/Obstetrics [facility] [address] [place] [address] Clarence Elder MD [address] [place] [phone] Scheduled Referrals Name Type Priority Associated Diagnoses Orde r Schedule BLOOD MANAGEMENT REFERRAL Referral Within 10 days (routine) Antepartum anemia complicating Ordered: 04/17/2024 Health Maintenance Due Date Last Done Comments [...] of state, incidental Encounter for anatomic survey High-risk in third trimester- Primary History of delivery, currently with history of pre-term labor Late care affecting in third trimester Tobacco use affecting , antepartum Antepartum anemia complicating Anemia, antepartum Cervical shortening in third trimester Cervical shortening, antepartum condition or complication documented in this encounter Additional Health Concerns Active Problems Noted Date Diagnosed Date OB Reminders 03/04/2024 documented as of this encounter
--- OUTSIDE RECORDS SUMMARY | 2024-05-14 02:51 | External Medical Summary ---
Author Name Unknown Address Unknown Organization K01:[facility] [place] [address] [facility] [address] Laboratory Report Ordering Provider Test Date Status DEXTER TALAVERA 04/23/2024 10:21:34 Final Observation Date Value Abnormality Reference (Units ) Status Retic, % (auto) 04/23/2024 10:21:34 2.04 Above high normal 0.80-1.90 (%) Final Reticulocytes, Absolute 04/23/2024 10:21:34 76.3 31.3-100.1 (K/uL) Final Reticulocyte fraction, immature 04/23/2024 10:21:34 29.1 Above high normal 2.5-20.6 (%) Final Reticulocyte HGB 04/23/2024 10:21:34 26.2 Below low normal 29.7-37.4 (pg) Final Performing Location [facility] [address] [facility] [address]
--- OUTSIDE RECORDS SUMMARY | 2024-05-14 02:51 | External Medical Summary | Summary of Care ---
Author Name Unknown Organization [facility] Address [address] [place] [address] Phone [phone] Care Team Providers Care Marquetry Worker Name Role Phone Unavailable Primary Care Provider Unavailabl e Reason for Visit * Reason Comments Outpatient Testing Encounter Details Date Type Department Care Team (Late st Contact Info) Description 03/13/2024 9:20 AM EST Laboratory Laboratory, [facility] [address] [place] [phone] [facility] [address] [place] [address] High-risk in second trimester Allergies Active Allergy Reactions Criticality Noted Date Comments Food (See Comments) 08/11/2003 Banana allergy documented as of this encounter (statuses as of 03/13/2024) Medications Forte Oral Tablet Take by mouth. Active Iron-Vitamin C 65-125 MG Oral Tablet (Vitron C)Indications:Ant epartum anemia complicating Take 1 Tablet by mouth in the morning and 1 Tablet before bedtime. 60 Tablet 3 4 Active documented as of this encounter (statuses as of 03/13/2024) Active Problems Problem Noted Date Diagnosed Date Antepartum anemia complicating 024 Overview (02/14/2024): Hgb [...] 1.8 cm without funneling. First delivery at [facility]; unsure exact gestational age but "near term" and infant weight 5#3 oz. We reviewed that based on current gestational age, no indication for ongoing cervical evaluation as there is no indication for intervention (cerclage/progesterone) at this time. PTL/PPROM precautions given and Livia encouraged to communicate any s/sx with her OB team as physical exam will be more important High-risk in second trimester 02/13/20 24 History of delivery, currently 02/13/2024 Overview (02/13/2024): Last delivery at [facility]. From dates given pt would have [...] as of this encounter (statuses as of 03/13/2024) Immunizations Name Administration Dates Next Due Hepatitis [...] AM EST documented as of this encounter Plan of Treatment Upcoming Encounters Date Type Department Care Team (Late st Contact Info) Description 04/02/2024 11:45 AM EST Office Visit Gynecology/Obstetrics [facility] [address] [place] [address] Grace Rain CRNP [address] [place] [address] 04/03/2024 1:00 PM EST Imaging Maternal Medicine Imaging, [place] [phone] Pending Results Name Type Priority Associated Diagnoses Date /Time 50-G GESTATIONAL GLUCOSE, 1 HOUR Lab Routine High-risk in second trimester 03/13/2024 10:29 AM EST SYPHILIS ANTIBODY SCREEN WITH REFLEX TO RPR Lab Routine High-risk in second trimester 03/13/2024 10:29 AM EST CBC WITH WBC DIFFERENTIAL AND ANEMIA REFLEX WORKUP Lab Routine High-risk in second trimester 03/13/2024 10:29 AM EST SYPHILIS ANTIBODY SCREEN Lab Routine High-risk in second trimester 03/13/2024 10:29 AM EST ANEMIA CBC Lab Routine High-risk in second trimester 03/13/2024 10:29 AM EST DIFFERENTIAL, AUTOMATED Lab Routine High-risk in second trimester 03/13/2024 10:29 AM EST ANEMIA REFLEX CHEMISTRY HOLD Lab Routine High-risk in second trimester 03/13/2024 10:29 AM EST Health Maintenance Due Date Last Done Comments Depression Screening 2005 COVID-19 Vaccine (2023-25 season) 2023 Influenza Vaccine (FLU shot) (#1) [...] 5 Years) and At-Risk Patients (6 to 64 Years) Aged Out No longer eligible based on [...] incidental Encounter for anatomic survey High-risk in second trimester documented in this encounter Additional Health Concerns Active Problems Noted Date Diagnosed Date OB Reminders 03/04/2024 documented as of this encounter
--- OUTSIDE RECORDS SUMMARY | 2024-05-14 02:51 | External Medical Summary | Summary of Care ---
Author Name Unknown Organization [facility] Address [address] [place] [address] Phone [phone] Care Team Providers Care Microsoft Office Instructor Name Role Phone Unavailable Primary Care Provider Unavailabl e Reason for Visit * Reason Comments Return Visit Encounter Details Date Type Department Care Team (Late st Contact Info) Description 02/28/2024 1:30 PM EST Office Visit Gynecology/Obstetric s J[facility] Green [address] [facility] [place] [address] Adrianna Sampson CRNP [address] [place] [address] High-risk in second trimester*; Short cervix during in second trimester; History of delivery, currently ; Late care affecting in second trimester; Tobacco use affecting , antepartum; Antepartum anemia complicating Allergies Active Allergy Reactions Criticality Noted Date Comments Food (See Comments) 08/11/2003 Banana allergy documented as of this encounter (statuses as of 02/28/2024) Medications Forte Oral Tablet Take by mouth. Active Iron-Vitamin C 65-125 MG Oral Tablet (Vitron C)Indications:Ant epartum anemia complicating Take 1 Tablet by mouth in the morning and 1 Tablet before bedtime. 60 Tablet 3 4 Active documented as of this encounter (statuses as of 02/28/2024) Active Problems Problem Noted Date Diagnosed Date [...] of labor and demise with prematurity. Recommended [facility] referral, she was agreeable. High-risk in second trimester 02/13/20 24 History of delivery, currently 02/13/2024 Overview (02/13/2024): Last delivery at [facility]. From dates given pt would have delivered at 36w6d. Late care affecting in second trimester 02/13/2024 Overview (02/13/2024): NOB at 23 weeks Tobacco use affecting , antepartum 01/25 Overview (02/13/2024): Has cut back. Recommended she quit. Smoking 1 cigar a day at NOB Estimated Date of Delivery Comme nts Yes 06/11/2024 Based on Ultraso und documented as of this encounter (statuses as of 02/28/2024) Immunizations Name Administration Dates Next Due DTP/HIB (Tetramune) 02/13/1994,1993 DTaP Dipth/Tet/Acell Pertussis (Infanrix), Peds 11/15/1998,08/24/1995,04/24/1994 Haemophilius B (HIB), unspecified 04/24/1994,,1993 Hepatitis A, Ped/Adol., 18 y ear and below, 2-Dose 09/29/2005 Hepatitis B Vaccine 04/24/1994,1993,1993 IPV - Polio Virus Vaccine (Inact) 12/06/1998 MMR - Measles/Mumps/Rubella Vaccine 11/15/1998,0 08/24/1995 OPV - Polio Virus Vaccine (Oral) 996,04/24/1994,02/13/1994,1993 Seasonal Influenza Vac., MDV , IM, 0.5 mL (Fluzone) 01/05/2011,01/28/2010,02/05/2007,2005,01/18/2005 TB Faviola Test 11/15/1998 TDAP, Age 7 and older, IM (Adacel) 09/29/2005 Varicella Vaccine (Chicken Pox) 06/16/2011,12/06 documented as of this encounter Social History Tobacco Use Types Packs/Day Years Used Date Smoking Tobacco: Never Smokeless Tobacco: Never Alcohol Use Standard Drinks/Week Comments Not Asked 0 (1 standard drink = 0.6 oz pur e alcohol) Estimated Date of Delivery Comme nts Yes 06/11/2024 Based on Ultraso und Sex and Gender Information Value Date Recorded Sex Assigned at Not on file Legal Sex Female 7:13 AM EST Gender Identity Not on file Sexual Orientation Not on file documented as of this encounter Last Filed Vital Signs Vital Sign Reading Time Taken Comments Blood Pressure 100/58 02/28/2024 1:39 PM EST Pulse - - Temperature - - Respiratory Rate - - Oxygen Saturation - - Inhaled Oxygen Concentration - - Weight 49.9 kg (110 lb) 02/28/2024 1:39 PM EST Height - - Body Mass Index 21.85 02/13/2024 11:06 AM EST documented in this encounter Progress Notes * Adrianna Sampson CRNP - 02/28/2024 1:54 PM EST 25w1d No complaints. Reports good FM. Denies contractions, bleeding, LOF. Has MFM appt 03/04, states FOB mother is taking her. Breast and pelvic exam done today. Human Resources Compliance Manager Documentation Provider requested count room clerk. Name of count room clerk: Christin Tellez with next visit. ADRIA Juarez * Christin Lake CMA - 02/28/2024 1:39 PM EST 25w1d Denies any concerns. documented in this encounter Miscellaneous Notes * Addendum Note - Christin Lake CMA - 02/28/2024 2:09 PM ESTAddended by: CHRISTIN LAKE on: 02/28/2024 02:09 PM Modules accepted: Orders documented in this encounter Plan of Treatment Upcoming Encounters Date Type Department Care Team (Late st Contact Info) Description 03/04/2024 10:45 AM EST Office Visit Pitching Coach Obstetrics Maternal Medicine, [place] [address] [place] [address] [place] [address] [place] [address] 03/04/2024 10:45 AM EST Imaging [facility]iology [facility], [place] [address] [place] [address] 03/13/2024 9:20 AM EST Laboratory Laboratory, [facility] [place] [phone] [facility] [address] [facility] [address] 03/13/2024 9:30 AM EST Office Visit Gynecology/Obstetrics [facility] [place] [address] Clarence Elder MD [address] [place] [address] Pending Results Name Type Priority Associated Diagnoses Date /Time SVP GROUP DIRECTOR PAP SCREEN Pathology Routine High-risk in second trimester 02/28/2024 2:09 PM EST CHLAMYDIA TRACHOMATIS AND NEISSERIA GONORRHOEAE, AMPLIFIED PROBE Lab Routine High-risk in second trimester 02/28/2024 2:09 PM EST Scheduled Orders Name Type Priority Associated Diagnoses Order Schedule 50-G GESTATIONAL GLUCOSE, 1 HOUR Lab Routine High-risk in second trimester Expected: 03/19/2024 (Approximate), Expires: 02/27/2025 SYPHILIS ANTIBODY SCREEN WITH REFLEX TO RPR Lab Routine High-risk in second trimester Expected: 03/19/2024 (Approximate), Expires: 02/27/2025 CBC WITH WBC DIFFERENTIAL AND ANEMIA REFLEX WORKUP Lab Routine High-risk in second trimester Expected: 03/19/2024 (Approximate), Expires: 02/27/2025 SVP GROUP DIRECTOR PAP SCREEN Pathology Routine High-risk in second trimester Expected: 02/28/2024, Expires: 03/30/2025 CHLAMYDIA TRACHOMATIS AND NEISSERIA GONORRHOEAE, AMPLIFIED PROBE Lab Routine High-risk in second trimester Expected: 02/28/2024, Expires: 02/27/2025 URINALYSIS OBSTETRICS, POINT OF CARE Point of Care Testing - Unsolicited Results Routine High-risk in second trimester Ordered: 02/28/2024 Health Maintenance Due Date Last Done Comments Depression Screening 2005 Pap Smear 2014 Cervical Cancer Screening 10/14/2023 HPV/Co-Test 10/14/2023 COVID-19 Vaccine ( season) 2023 Influenza Vaccine (FLU shot) (#1) 2023 01/05/2011, 01/28/2010, 01/28/2010, Additional history exists DTap/Tdap Vaccines (7 - Td or Tdap) [...] this topic documented as of this encounter Medical Devices Not on filedocumented as of this encounter Procedures Procedure Name Priority Date/Time Associated Diagnosis Comments URINALYSIS, POINT OF CARE FERMÍN 02/28/2024 2:11 PM EST documented in this encounter Results * (ABNORMAL) URINALYSIS, POINT OF CARE (02/28/2024 2:11 PM EST) Color, Urine Yellow Light Yellow, Yellow 02/28/2024 2:13 PM EST LABORATORY [facility] 57-10 Clarity, Urine Clear Clear 02/28/2024 2:13 PM EST LABORATORY [place] [facility] [facility]10 Glucose, Urine Negative Negative mg/dL 02/28/2024 2:13 PM EST LAB[facility]ATORY [facility]10 Bilirubin, Urine Small(A) Negative 02/28/2024 2:13 PM EST LAB[facility]10 Ketone, Urine Negative Negative mg/dL 02/28/2024 2:13 PM EST LAB[facility] Specific [place], Urine >=1.030 1.003 - 1.030 02/28/2024 2:13 PM EST LAB[facility]ATORY [facility]10 Blood, Urine Trace-intact (A) Negative 02/28/2024 2:13 PM EST [facility]AT[facility] 57[facility]10 pH, Urine 6.0 5.0, 5.5, 6.0, 6.5, 7.0, 7.5 units 02/28/2024 2:13 PM EST LAB[facility]AT[facility] Protein, Urine 30(A) Negative mg/dL 02/28/2024 2:13 PM EST [facility] [place] [facility] Urobilinogen, Urine 1.0 0.2, 1.0 mg/dL 02/28/2024 2:13 PM EST [facility] Nitrite, Urine Negative Negative 02/28/2024 2:13 PM EST [facility] Esterase, Urine Small(A) Negative 02/28/2024 2:13 PM EST [facility]10 Urine 02/28/2024 2:11 PM EST 02/28/2024 2:13 PM EST us Adrianna [facility] LAB POINT OF CARE TE ST DOCKED DEVICE UNSOLICITED RESULTS Final Result LABORATORY [facility] [place] [facility]10 [address] [facility] [place] [address] documented in this encounter Visit Diagnoses Diagnosis High-risk in second trimester- Primary Short cervix during in second trimester History of delivery, currently with history of pre-term labor Late care affecting in second trimester Tobacco use affecting , antepartum Antepartum anemia complicating Anemia, antepartum documented in this encounter
--- OUTSIDE RECORDS SUMMARY | 2024-05-14 02:51 | External Medical Summary | Summary of Care ---
Author Name Unknown Organization [facility] Address [address] [place] [address] Phone [phone] Care Team Providers Care Fibrous Plasterer Name Role Phone Unavailable Primary Care Provider Unavailabl e Reason for Visit * Reason Comments Return Visit Encounter Details Date Type Department Care Team (Late st Contact Info) Description 02/28/2024 1:30 PM EST Office Visit Gynecology/Obstetric s Jil Green [address] [facility] [place] [address] Adrianna Sampson CRNP [address] [facility] [place] [address] High-risk in second trimester*; Short cervix during [...] of labor and demise with prematurity. Recommended [facility] referral, she was agreeable. High-risk in second trimester 02/13/20 24 History of delivery, currently 02/13/2024 Overview (02/13/2024): Last delivery at [facility]. From dates given pt would have delivered [...] her. Breast and pelvic exam done today. Scale Balancer Documentation Provider requested nursing attendant. Name of nursing attendant: Christin Tellez with next visit. ADRIA Juarez [...] Description 03/04/2024 10:45 AM EST Office Visit Numerical Control Router Operator Obstetrics Maternal Medicine, [place] [address] [place] [address] [place] [address] [place] [address] 03/04/2024 10:45 AM EST Imaging Radiology [facility], [place] [address] [place] [address] 03/13/2024 9:20 AM EST Laboratory Laboratory, [facility] [place] [phone] [facility] [address] 03/13/2024 9:30 AM EST Office Visit Gynecology/Obstetrics [facility] [place] [address] Clarence Elder MD [address] [facility] [place] [address] Pending Results Name Type Priority Associated Diagnoses Date /Time UNDERCOLLAR BASTER PAP SCREEN Pathology Routine High-risk in second [...] second trimester Expected: 03/19/2024 (Approximate), Expires: 02/27/2025 UNDERCOLLAR BASTER PAP SCREEN Pathology Routine High-risk in second [...] PM EST LABORATORY [facility]10 Specific [place], Urine >=1.030 1.003 - 1.030 02/28/2024 2:13 [...] Final Result LABORATORY [facility] [address] [facility] [place] [address] documented in this encounter Visit Diagnoses Diagnosis High-risk in second trimester- Primary Short cervix during in second trimester History of delivery, currently with history of pre-term labor Late care affecting in second trimester Tobacco use affecting , antepartum Antepartum anemia complicating Anemia, antepartum documented in this encounter
--- OUTSIDE RECORDS SUMMARY | 2024-05-14 02:51 | External Medical Summary | Summary of Care ---
Author Name Unknown Organization [facility] Address [address] [place] [address] Phone [phone] Care Team Providers Care Soft Work Wrapper Layer And Examiner Name Role Phone Unavailable Primary Care Provider Unavailabl e Reason for Visit * Reason Comments Return Visit Encounter Details Date Type Department Care Team (Late st Contact Info) Description 02/28/2024 1:30 PM EST Office Visit Gynecology/Obstetric s Jil Green [address] [facility] [place] [address] Adrianna Sampson CRNP [address] [place] [address] High-risk in second trimester*; Short cervix during [...] of labor and demise with prematurity. Recommended [facility] referral, she was agreeable. High-risk in second trimester 02/13/20 24 History of delivery, currently 02/13/2024 Overview (02/13/2024): Last delivery at [facility]. From dates given pt would have [...] her. Breast and pelvic exam done today. Floor Worker Well Service Documentation Provider requested cost estimating engineer. Name of cost estimating engineer: Christin Tellez with next visit. ADRIA Juarez [...] Description 03/04/2024 10:45 AM EST Office Visit Health Plan Specialist Obstetrics Maternal Medicine, [place] [address] [place] [address] [place] [address] [place] [address] 03/04/2024 10:45 AM EST Imaging [facility], [place] [address] [place] [address] 03/13/2024 9:20 AM EST Laboratory Laboratory, [facility] [place] [phone] [facility] [address] [address] 03/13/2024 9:30 AM EST Office Visit [facility]st[facility]s [facility] [place] [address] Clarence Elder MD [address] [place] [address] Pending Results Name Type Priority Associated Diagnoses Date /Time MANAGER OF PHARMACY PAP SCREEN Pathology Routine High-risk in second [...] second trimester Expected: 03/19/2024 (Approximate), Expires: 02/27/2025 MANAGER OF PHARMACY PAP SCREEN Pathology Routine High-risk in second [...] as of this encounter Visit Diagnoses Diagnosis High-risk in second trimester- Primary Short cervix during in second trimester History of delivery, currently with history of pre-term labor Late care affecting in second trimester Tobacco use affecting , antepartum Antepartum anemia complicating Anemia, antepartum documented in this encounter
--- OUTSIDE RECORDS SUMMARY | 2024-05-14 02:51 | External Medical Summary ---
Author Name Unknown Address Unknown Organization K01:[facility] [address] Laboratory Report Ordering Provider Test Date Status DIVINE QUEVEDO 02/28/2024 14:09:28 Final Observation Date Value Abnormality Reference (Units ) Status Chlamydia trachomatis rRNA [Presence] in Specimen by VALERY with probe detection 02/28/2024 14:09:28 Negative Negative Final No Chlamydia trachomatis det ected by tower dragline operator-mediated nucleic acid amplification. Neisseria gonorrhoeae rRNA [ Presence] in Specimen by VALERY with probe detection 02/28/2024 14:09:28 Negative Negative Final No Neisseria gonorrhoeae det ected by tower dragline operator-mediated nucleic acid amplification. Performing Location [facility] [place] [address] [facility] [address]
--- OUTSIDE RECORDS SUMMARY | 2024-05-14 02:51 | External Medical Summary ---
Author Name Unknown Address Unknown Organization K01:LABORATORY [place] [address] Laboratory Report Ordering Provider Test Date Status DIVINE QUEVEDO 02/28/2024 14:09:00 Final Observation Date Value Abnormality Reference (Units ) Status Human papilloma virus E6+E7 mRNA [Presence] in Cervix by VALERY with probe detection 02/28/2024 14:09:00 Negative Not Applicable Final No high/intermediate-risk Hu man Papillomavirus (HPV E6/E7 messenger RNA) detected by nucleic acid amplification.

This assay looks for high/intermediate risk Human Papillomavirus (HPV E6/E7 messenger RNA) by nucleic acid amplification. This assay includes the qualitative detection of HPV types 16,18,31,33,35,39,45,51,52,56,58,59,66 and 68 from cervical specimens.
This assay has been FDA cleared for Thin prep collection vials.
This assay has not been approved for use as a primary screening test for HPV and should be tested in conjunction with a PAP screen.
If collected utilizing a Surepath vial, the collection and specimen preparation of this test was developed, and its performance characteristics determined by [employer]. It has not been cleared or approved by the U.S. Food and Drug Administration (FDA). The FDA has determined that such clearance or approval is not necessary.
This assay has been performed at [facility], [address] [place] [address], [place]. [address]. Performing Location LABORATORY [address] [address]
--- OUTSIDE RECORDS SUMMARY | 2024-05-14 02:51 | External Medical Summary | Summary of Care ---
Author Name Unknown Organization [facility] Address [address] [place] [address] Phone [phone] Care Team Providers Care Matrix Worker Name Role Phone Unavailable Primary Care Provider Unavailabl e Reason for Visit * Reason Comments Outpatient Testing Encounter Details Date Type Department Care Team (Late st Contact Info) Description 04/23/2024 10:30 AM EST Laboratory Laboratory, [facility] [address] [place] [phone] [facility] [address] [place] [address] KATHERYN (iron deficiency anemia) Allergies Active Allergy Reactions Criticality Noted Date [...] 1.8 cm without funneling. First delivery at [facility]; unsure exact gestational age but "near term" [...] currently 02/13/2024 Overview (02/13/2024): Last delivery at [facility]. From dates given pt would [...] 04/24/2024) Immunizations Name Administration Dates Next Due DTP/HIB [...] have money to get more. Sometimes true [place] Depression Scale Answer Date Recorded [place] Depression Scale Total 13 04/17/2024 The thought [...] as of this encounter Miscellaneous Notes * Result Encounter Note - Grace Rain CRNP - 04/24/2024 8:32 AM EST Results forwarded to Kevin Feliciano in blood mgmt documented in this encounter Plan of Treatment Upcoming Encounters Date Type Department Care Team (Late st Contact Info) Description 05/01/2024 9:15 AM EST Office Visit Gynecology/Obstetrics Jil Green [address] [place] [address] Clarence Elder MD [address] [place] [phone] Health Maintenance Due Date Last Done [...] Procedure Name Priority Date/Time Associated Diagnosis Comments ANEMIA REFLEX CHEMISTRY HOLD Routine 04/23/2024 10:21 AM EST KATHERYN (iron deficiency anemia) ANEMIA CBC Routine 04/23/2024 10:21 AM EST KATHERYN (iron deficiency anemia) DIFFERENTIAL, AUTOMATED Routine 04/23/2024 10:21 AM EST KATHERYN (iron deficiency anemia) DIFFERENTIAL, AUTOMATED Routine 04/23/2024 10:21 AM EST KATHERYN (iron deficiency anemia) RETICULOCYTE PANEL Routine 04/23/2024 10 :21 AM EST KATHERYN (iron deficiency anemia) IRON SCREEN, INCLUDING TIBC Routine 04/23/2024 10:21 AM EST KATHERYN (iron deficiency anemia) CREATININE Routine 04/23/2024 10:21 AM EST KATHERYN (iron deficiency anemia) DIFFERENTIAL, TECHNOLOGIST REVIEW Routine 04/23/2024 10:21 AM EST KATHERYN (iron deficiency anemia) FERRITIN Routine 04/23/2024 10:21 AM EST KATHERYN (iron deficiency anemia) documented in this encounter Results * CREATININE (04/23/2024 10:21 AM EST) CREATININE 0.6 0.5 - 1.0 mg/dL 04/23/2024 9:45 PM EST LABORATORY [facility] EGFR >90 >=60 mL/min 04/23/2024 9:45 PM EST LABORATORY [facility] Comment:eGFR is calculated b ased on the CKD-EPI 2020 equation. Blood Venous blood specimen / Unknown Venipuncture / Unknown 04/23/2024 10:21 AM EST 04/23/2024 10:21 AM EST Grace Higgins Backer SUSTAINABILITY ENGINEER LAB BLOOD ORDERABLE S Final Result LABORATORY [facility] [address] [place] [address] * (ABNORMAL) FERRITIN (04/23/2024 10:21 AM EST) Ferritin 9(L) 13 - 150 ng/mL 04/23/2024 10:15 PM EST LABORATORY [facility] Blood Venous blood specimen / Unknown Venipuncture / Unknown 04/23/2024 10:21 AM EST 04/23/2024 10:21 AM EST Grace Higgins Backer [facility] LAB BLOOD ORDERABLE S Final Result Performing Organization Address City/[facility]/ZIP Co de Phone Number LABORATORY [facility] [address] [place] [address] * (ABNORMAL) IRON SCREEN, INCLUDING TIBC (04/23/2024 10:21 AM EST) Iron 17(L) 33 - 151 ug/dL 04/23/2024 9:45 PM EST LABORATORY [facility] Iron Binding Capacity 452(H) 250 - 425 ug/dL 04/23/2024 9:45 PM EST LABORATORY [facility] Transferrin Saturation Percent 4(L) 15 - 55 % 04/23/2024 9:45 PM EST LABORATORY [facility] Blood Venous blood specimen / Unknown Venipuncture / Unknown 04/23/2024 10:21 AM EST 04/23/2024 10:21 AM EST [facility]ortunato Higgins [facility] LAB BLOOD ORDERABLE S Final Result Performing Organization Address City/[facility]/ZIP Co de Phone Number LABORATORY [address] [address] * (ABNORMAL) RETICULOCYTE PANEL (04/23/2024 10:21 AM EST) Reticulocyte Percent 2.04(H) 0.80 - 1.90 % 04/23/2024 8:09 PM EST LABORATORY [facility] Absolute Reticulocyte 76.3 31.3 - 100.1 K/uL 04/23/2024 8:09 PM EST LABORATORY [facility] Immature Reticuloctye Fraction 29.1(H) 2.5 - 20.6 % 04/23/2024 8:09 PM EST LABORATORY [facility] Reticulocyte Hemoglobin 26.2(L) 29.7 - 37.4 pg 04/23/2024 8:09 PM EST LABORATORY [facility] Blood Venous blood specimen / Unknown Venipuncture / Unknown 04/23/2024 10:21 AM EST 04/23/2024 10:21 AM EST us Grace Higgins Backer SUSTAINABILITY ENGINEER LAB BLOOD ORDERABLE S Final Result LABORATORY [facility] [address] [place] [address] * (ABNORMAL) DIFFERENTIAL, TECHNOLOGIST REVIEW (04/23/2024 10:21 AM EST) WBC 20.03(H) 4.00 - 10.80 K/uL 04/23/2024 11:27 AM EST LABORATORY [place] 57-10 Neutrophils % 65.7 40.0 - 75.0 % 04/23/2024 11:27 AM EST LABORATORY [place] 57-10 Lymphocytes % 23.2 18.0 - 42.0 % 04/23/2024 11:27 AM EST LABORATORY [place] 57-10 Monocytes % 7.1 1.0 - 11.0 % 04/23/2024 11:27 AM EST LABORATORY [place] 57-10 Eosinophils % 1.0 0.0 - 6.0 % 04/23/2024 11:27 AM EST LABORATORY [place] 57-10 Metamyelocytes % 1.0(H) <=0.0 % 04/23/19 11:27 AM EST LABORATORY [place] 57-10 Myelocytes % 2.0(H) <=0.0 % 04/23/2024 11:27 AM EST LABORATORY [place] 57-10 Absolute Neutrophils 13.15(H) 1.80 - 7.70 K/uL 04/23/2024 11:27 AM EST LABORATORY [place] 57-10 Absolute Lymphocytes 4.65 1.00 - 4.80 K/uL 04/23/2024 11:27 AM EST LABORATORY [place] 57[facility]10 Absolute Monocytes 1.42(H) 0.00 - 1.10 K/uL 04/23/2024 11:27 AM EST LABORATORY [place] 57-10 Absolute Eosinophils 0.20 0.00 - 0.70 K/uL 04/23/2024 11:27 AM EST LABORATORY [place] 57-10 Absolute Metamyelocytes 0.20(H) <=0.00 K/uL 04/23/2024 11:27 AM EST LABORATORY [place] 57-10 Absolute Myelocytes 0.40(H) <=0.00 K/uL 04/23/2024 11:27 AM EST LABORATORY [place] 57-10 nRBCs 04/23/2024 11:27 AM EST LABORATORY [place] 57-10 Reactive Lymphocytes Present(A ) None Seen 04/23/2024 11:27 AM EST LABORATORY [place] 57[facility]10 Toxic Granulation Moderate( A) None Seen 04/23/2024 11:27 AM EST LABORATORY [place] 57-10 Giant PLTs Present(A ) None Seen 04/23/2024 11:27 AM EST LABORATORY [place] 57-10 Blood Venous blood specimen / Unknown Venipuncture / Unknown 04/23/2024 10:21 AM EST 04/23/2024 10:21 AM EST Grace Rain SUSTAINABILITY ENGINEER LAB BLOOD ORDERABLE S Final Result LABORATORY [place] 57[facility]10 [address] [place] [address] * ANEMIA REFLEX CHEMISTRY HOLD (04/23/2024 10:21 AM EST) Blood Venous blood specimen / Unknown Venipuncture / Unknown 04/23/2024 10:21 AM EST 04/23/2024 10:21 AM EST Grace STOVALLNP LAB BLOOD ORDERABLE S Final Result LABORATORY [facility] [address] [place] [address] * DIFFERENTIAL, AUTOMATED (04/23/2024 10:21 AM EST) Blood Venous blood specimen / Unknown Venipuncture / Unknown 04/23/2024 10:21 AM EST 04/23/2024 10:21 AM EST Grace Higgins Backer SUSTAINABILITY ENGINEER LAB BLOOD ORDERABLE S Final Result LABORATORY [place] 57[facility]10 [address] [place] [address] * (ABNORMAL) ANEMIA CBC (04/23/2024 10:21 AM EST) WBC 20.03(H) 4.00 - 10.80 K/uL 04/23/2024 11:27 AM EST LABORATORY [facility] [place] 57-10 RBC 3.79 3.85 - 5.15 M/uL 04/23/2024 11:27 AM EST LABORATORY [facility] [place] 57-10 HGB 10.0(L) 12.0 - 15.3 g/dL 04/23/2024 11:27 AM EST LABORATORY [facility] 57-10 Comment: Anemia reflex testing triggers on a HGB < 12.0 for Females and HGB < 13.0 for Males in accordance with the WHO Anemia Guidelines Anemia reflex testing triggers on a HGB < 12.0 for Females and HGB < 13.0 for Males in accordance with the WHO Anemia Guidelines HCT 32.8(L) 36.0 - 45.2 % 04/23/2024 11:27 AM EST [facility] MCV 86.5 81.5 - 97.5 fL 04/23/2024 11:27 AM EST LABORATORY [place] 57-10 MCH 26.4 27.0 - 34.0 pg 04/23/2024 11:27 AM EST [facility] MCHC 30.5 32.0 - 36.0 g/dL 04/23/2024 11:27 AM EST [facility]10 RDW 17.3 11.5 - 15.5 % 04/23/2024 11:27 AM EST [facility] PLT 286 140 - 400 K/uL 04/23/2024 11:27 AM EST LABORATORY [place] 57-10 MPV 11.2 6.6 - 11.1 fL 04/23/2024 11:27 AM EST [facility] Blood Venous blood specimen / Unknown Venipuncture / Unknown 04/23/2024 10:21 AM EST 04/23/2024 10:21 AM EST Grace Browner ADRIA LAB BLOOD ORDERABLE S Final Result LABORATORY [place] 57-10 [address] [place] [address] documented in this encounter Visit Diagnoses Diagnosis Short cervix during in second trimester- Primary 25 weeks gestation of state, incidental Encounter for anatomic survey KATHERYN (iron deficiency anemia) Iron deficiency anemia, unspecified documented in this encounter Additional Health Concerns Active Problems Noted Date Diagnosed Date OB Reminders 03/04/2024 documented as of this encounter
--- OUTSIDE RECORDS SUMMARY | 2024-05-14 02:51 | External Medical Summary | Summary of Care ---
Author Name Unknown Organization [facility] Address [address] [place] [address] Phone [phone] Care Team Providers Care Utility Tech Name Role Phone Unavailable Primary Care Provider Unavailabl e Reason for Visit * Reason Onset Date Comments Test Results 03/14/2024 Encounter Details Date Type Department Care Team (Late st Contact Info) Description 03/14/2024 Telephone Gynecology/Obstetrics [facility] [address] [place] [address] Backer, ADRIA Hess [address] [place] [address] Test Results Allergies Active Allergy Reactions Criticality Noted Date Comments Food (See Comments) 08/11/2003 Banana allergy documented as of this encounter (statuses as of 03/21/2024) Medications Forte Oral Tablet Take by mouth. Active Iron-Vitamin C 65-125 MG Oral Tablet (Vitron C)Indications:Ant epartum anemia complicating Take 1 Tablet by mouth in the morning and 1 Tablet before bedtime. 60 Tablet 3 4 Active documented as of this encounter (statuses as of 03/21/2024) Active Problems Problem Noted Date Diagnosed Date Antepartum anemia complicating 11/21/2 024 Overview (02/14/2024): Hgb 11.0, Ferrtin 11 [...] currently 02/13/2024 Overview (02/13/2024): Last delivery at [facility]. From dates given pt would have delivered at 36w6d. Late care affecting in second trimester 02/13/2024 Overview (02/13/2024): NOB at 23 weeks Tobacco use affecting , antepartum 01/25 Overview (02/13/2024): Has cut back. Recommended she quit. Smoking 1 cigar a day at NOB Estimated Date of Delivery Comme nts Yes 06/11/2024 Based on Ultraso und documented as of this encounter (statuses as of 03/21/2024) Immunizations Name Administration Dates Next Due Hepatitis [...] encounter Miscellaneous Notes * Telephone Encounter - Lindy Mares LPN - 03/14/2024 9:16 AM EST left message for patient to call office * Telephone Encounter - Grace Rain CRNP - 03/14/2024 8:21 AM EST WBC elevated - see PCP if feeling unwell. Anemia has gotten worse - is she taking iron twice a day? Ensure separately from vitamins and dairy products. If so, she will need iron infusions. Please let me know so I can order appropriately. ADRIA Armstrong documented in this encounter Plan of Treatment Upcoming Encounters Date Type Department Care Team (Late st Contact Info) Description 04/02/2024 11:45 AM EST Office Visit Gynecology/Obstetrics J[facility] Green [address] [place] [address] Grace Rain CRNP [address] [place] [address] 04/03/2024 1:00 PM EST Imaging Maternal Medicine Imaging, [facility] [place] [address] [place] [address] Health Maintenance Due Date Last Done [...] Author Reminders Care Plan OB Reminders No Mingo Provider documented as of this encounter Medical Devices Not on filedocumented as of this encounter Additional Health Concerns Active Problems Noted Date Diagnosed Date OB Reminders 03/04/2024 documented as of this encounter
--- OUTSIDE RECORDS SUMMARY | 2024-05-14 02:51 | External Medical Summary ---
Author Name Unknown Address Unknown Organization K0G:[facility] - [address] [place] [id number] Laboratory Report Ordering Provider Test Date Status EMYDIVINE 03/13/2024 10:29:11 Final Observation Date Value Abnormality Reference (Units ) Status Glucose [Moles/volume] in Serum or Plasma --1 hour post 50 g glucose PO 03/13/2024 10:29:11 57 Below low normal 70-129 (mg/dL) Final Performing Location [facility] 0 - [address] [place] [id number]
--- OUTSIDE RECORDS SUMMARY | 2024-05-14 02:51 | External Medical Summary ---
Author Name Unknown Address Unknown Organization K01:[facility] [place] [address] [facility] [facility] [address] Laboratory Report Ordering Provider Test Date Status DIVINE QUEVEDO 03/13/2024 10:29:11 Final Observation Date Value Abnormality Reference (Units ) Status Treponema pallidum Ab [Presence] in Serum by Immunoassay 03/13/2024 10:29:11 Nonreactive Nonreactive Final No serologic evidence of syp hilis. No additional testing clinicially indicated at this time. Consider repeat testing in 2-4 weeks if acute or primary syphilis is suspected. Performing Location [facility] [address] [facility] [address] [facility] [address]
--- OUTSIDE RECORDS SUMMARY | 2024-05-14 02:51 | External Medical Summary ---
Author Name Unknown Address Unknown Organization K01:LABORATORY [facility] [place] - [address] [facility] [address] Laboratory Report Ordering Provider Test Date Status DEXTER TALAVERA 04/23/2024 10:21:34 Final Observation Date Value Abnormality Reference (Units ) Status Creatinine 04/23/2024 10:21:34 0.6 0.5-1.0 (mg/dL) Final Glomerular filtration rate/1.73 sq M.predicted [Volume Rate/Area] in Serum, Plasma or Blood by Creatinine-based formula (CKD-EPI) 04/23/2024 10:21:34 >90 >=60 (mL/min) Final eGFR is calculated based on the CKD-EPI 2020 equation. Performing Location LABORATORY [facility] [facility] - [address] [facility] [address]
--- OUTSIDE RECORDS SUMMARY | 2024-05-14 02:51 | External Medical Summary | Summary of Care ---
Author Name Unknown Organization [facility] Address [address] [place] [address] Phone [phone] Care Team Providers Care Hadoop Consultant Name Role Phone Unavailable Primary Care Provider Unavailabl e Reason for Visit * Reason Comments Return Visit Encounter Details Date Type Department Care Team (Late st Contact Info) Description 03/13/2024 9:30 AM EST Office Visit Gynecology/Obstetric [facility] [address] [place] [address] Clarence Elder MD [address] [place] [phone] Short cervix during in second trimester*; High-risk in second trimester; History of delivery, currently [...] 1.8 cm without funneling. [facility]; unsure exact gestational age but "near term" [...] currently 02/13/2024 Overview (02/13/2024): Last delivery at [facility]. From dates given pt would [...] Sign Reading Time Taken Comments Blood Pressure 100/56 03/13/2024 9:41 AM EST Pulse - - Temperature - - Respiratory Rate - - Oxygen Saturation - - Inhaled Oxygen Concentration - - Weight 48.5 kg (107 lb) 03/13/2024 9:41 AM EST Height - - Body Mass Index 21.25 02/13/2024 11:06 AM EST documented in this encounter Progress Notes * Clarence Elder MD - 03/13/2024 9:52 AM EST Patient is doing well. No complaints. Good movement. * Jessica aCrdenas LPN - 03/13/2024 9:42 AM EST 27w1d Denies vaginal bleeding/rom + movement No new concerns documented in this encounter Plan of Treatment Upcoming Encounters Date Type Department Care Team (Late st Contact Info) Description 04/02/2024 11:45 AM EST Office Visit Gynecology/Obstetrics [address] [place] [address] Backer, Grace ADRIA Higgins [address] [place] [address] 04/03/2024 1:00 PM EST Imaging Maternal Medicine Imaging, [place] [address] [place] [phone] Health Maintenance Due Date Last Done [...] during in second trimester- Primary High-risk in second trimester History of delivery, currently with history of pre-term labor Late care affecting in second trimester Tobacco use affecting , antepartum Antepartum anemia complicating Anemia, antepartum documented in this encounter Additional Health Concerns Active Problems Noted Date Diagnosed Date OB Reminders 03/04/2024 documented as of this encounter
--- OUTSIDE RECORDS SUMMARY | 2024-05-14 02:51 | External Medical Summary ---
Author Name Unknown Address Unknown Organization K01:LABORATORY [facility] - [address] [facility] [address] Laboratory Report Ordering Provider Test Date Status DIVINE QUEVEDO 03/13/2024 10:29:11 Final Observation Date Value Abnormality Reference (Units ) Status WBC, Total 03/13/2024 10:29:11 19.81 Above high normal 4 .00-10.80 (K/uL) Final RBC 03/13/2024 10:29:11 3.84 3.85-5.15 (M/uL) Final Hemoglobin 03/13/2024 10:29:11 10.2 Below low normal 12 .0-15.3 (g/dL) Final Anemia reflex testing trigge rs on a HGB < 12.0 for Females and HGB < 13.0 for Males in accordance with the WHO Anemia Guidelines
Anemia reflex testing triggers on a HGB < 12.0 for Females and HGB < 13.0 for Males in accordance with the WHO Anemia Guidelines HCT 03/13/2024 10:29:11 34.4 Below low normal 36. 0-45.2 (%) Final MCV 03/13/2024 10:29:11 89.6 81.5-97.5 (fL) Final MCH 03/13/2024 10:29:11 26.6 27.0-34.0 (pg) Final MCHC 03/13/2024 10:29:11 29.7 32.0-36.0 (g/dL) Final RDW 03/13/2024 10:29:11 16.0 11.5-15.5 (%) Final Platelets 03/13/2024 10:29:11 334 140-400 (K /uL) Final MPV 03/13/2024 10:29:11 11.5 6.6-11.1 ( fL) Final Nucleated erythrocytes/100 leukocytes [Ratio] in Blood by Automated count 03/13/2024 10:29:11 0 <=0 (/100 WBCs) Final Performing Location LABORATORY [facility] [place] - [address] [facility] [address]
--- OUTSIDE RECORDS SUMMARY | 2024-05-14 02:51 | External Medical Summary ---
Author Name Unknown Address Unknown Organization [id number]:LABORATORY [facility] [address] [place] [address] Laboratory Report Ordering Provider Test Date Status DEXTER TALAVERA 04/23/2024 10:21:34 Final Observation Date Value Abnormality Reference (Units ) Status SYNC LEUKOCYTES IN BLOOD BY AUTOMATED COUNT 04/23/2024 10:21:34 20.03 Above high normal 4.00-10.80 (K/uL) Final Neutrophils/100 leukocytes in Blood by Manual count 04/23/2024 10:21:34 65.7 40.0-75.0 (%) Final Lymphocytes/100 leukocytes in Blood by Manual count 04/23/2024 10:21:34 23.2 18.0-42.0 (%) Final Monocytes/100 leukocytes in Blood by Manual count 04/23/2024 10:21:34 7.1 1.0-11.0 (%) Final Eosinophils/100 leukocytes in Blood by Manual count 04/23/2024 10:21:34 1.0 0.0-6.0 (%) Final Metamyelocytes/100 leukocytes in Blood by Manual count 04/23/2024 10:21:34 1.0 Above high normal <=0.0 (%) Final Myelocytes/100 leukocytes in Blood by Manual count 04/23/2024 10:21:34 2.0 Above high normal <=0.0 (%) Final Neutrophils [#/volume] in Blood by Manual count 04/23/2024 10:21:34 13.15 Above high normal 1.80-7.70 (K/uL) Final Lymphocytes [#/volume] in Blood by Manual count 04/23/2024 10:21:34 4.65 1.00-4.80 (K/uL) Final Monocytes [#/volume] in Blood by Manual count 04/23/2024 10:21:34 1.42 Above high normal 0.00-1.10 (K/uL) Final Eosinophils [#/volume] in Blood by Manual count 04/23/2024 10:21:34 0.20 0.00-0.70 (K/uL) Final Metamyelocytes [#/volume] in Blood by Manual count 04/23/2024 10:21:34 0.20 Above high normal <=0.00 (K/uL) Final Myelocytes [#/volume] in Blood by Manual count 04/23/2024 10:21:34 0.40 Above high normal <=0.00 (K/uL) Final Nucleated erythrocytes/100 leukocytes [Ratio] in Blood by Automated count 04/23/2024 10:21:34 Final Variant lymphocytes [Presence] in Blood by Light microscopy 04/23/2024 10:21:34 Present Abnormal None Seen Final Toxic granules [Presence] in Blood by Light microscopy 04/23/2024 10:21:34 Moderate Abnormal None Seen Final Giant platelets [Presence] in Blood by Light microscopy 04/23/2024 10:21:34 Present Abnormal None Seen Final [facility] [facility] [address]
--- OUTSIDE RECORDS SUMMARY | 2024-05-14 02:51 | External Medical Summary ---
Author Name Unknown Address Unknown Organization [id number]:LABORATORY [facility] [address] [place] [id number] Laboratory Report Ordering Provider Test Date Status DIVINE QUEVEDO 02/28/2024 14:11:00 Final Observation Date Value Abnormality Reference (Units ) Status Color of Urine by Auto 02/28/2024 14:11:00 Yellow Light Yellow, Yellow Final Clarity, Urine 02/28/2024 14:11:00 Clear Clear Final Glucose [Mass/volume] in Urine by Automated test strip 02/28/2024 14:11:00 Negative Negative (mg/dL) Final Bilirubin.total [Presence] in Urine by Automated test strip 02/28/2024 14:11:00 Small Abnormal Negative Final Ketones [Mass/volume] in Urine by Automated test strip 02/28/2024 14:11:00 Negative Negative (mg/dL) Final Specific gravity, Urine 02/28/2024 14:11:00 >=1.030 1.003-1.030 Final Hemoglobin [Presence] in Urine by Automated test strip 02/28/2024 14:11:00 Trace-intact Abnormal Negative Final pH, Urine 02/28/2024 14:11:00 6.0 5.0, 5.5, 6.0, 6.5, 7.0, 7.5 (units) Final Protein [Mass/volume] in Urine by Automated test strip 02/28/2024 14:11:00 30 Abnormal Negative (mg/dL) Final Urobilinogen, Urine 02/28/2024 14:11:00 1.0 0.2, 1.0 (mg/dL) Final Nitrite [Presence] in Urine by Automated test strip 02/28/2024 14:11:00 Negative Negative Final Leukocyte esterase [Presence] in Urine by Automated test strip 02/28/2024 14:11:00 Small Abnormal Negative Final Performing Location LAB[facility]ATORY [facility] [address] [place] [id number]
--- OUTSIDE RECORDS SUMMARY | 2024-05-14 02:51 | External Medical Summary ---
Author Name Unknown Address Unknown Organization [id number]:[facility]ORY [facility] - [address] [facility] [place] [facility] [address] Laboratory Report Ordering Provider Test Date Status ILANDEXTER 04/23/2024 10:21:34 Final Observation Date Value Abnormality Reference (Units ) Status Ferritin 04/23/2024 10:21:34 9 Below low normal 13- 150 (ng/mL) Final Performing Location LAB[facility] - [address] [facility] [address]
--- OUTSIDE RECORDS SUMMARY | 2024-05-14 02:51 | External Medical Summary ---
Author Name Unknown Address Unknown Organization K01:LABORATORY C - [address] [facility] [address] Laboratory Report Ordering Provider Test Date Status DIVINE QUEVEDO 03/13/2024 10:29:11 Final Observation Date Value Abnormality Reference (Units ) Status SYNC LEUKOCYTES IN BLOOD BY AUTOMATED COUNT 03/13/2024 10:29:11 19.81 Above high normal 4.00-10.80 (K/uL) Final Segs 03/13/2024 10:29:11 70.4 40.0-75.0 (%) Final Lymphs % 03/13/2024 10:29:11 16.9 Below low normal 18.0-42.0 (%) Final Monos 03/13/2024 10:29:11 9.0 1.0-11.0 (%) Final Eosinophils 03/13/2024 10:29:11 1.1 0.0-6.0 (%) Final Basos 03/13/2024 10:29:11 0.4 0.0-2.0 (%) Final Immature Granulocyte, Percent 03/13/2024 10:29:11 2.2 Above high normal 0.0-2.0 (%) Final Absolute Segs 03/13/2024 10:29:11 13.96 Above high normal 1.80-7.70 (K/uL) Final Lymphs, absolute 03/13/2024 10:29:11 3.35 1.00-4.80 (K/ul) Final Monos, Abs 03/13/2024 10:29:11 1.78 Above high normal 0.00-1.10 (K/uL) Final Eos, Abs 03/13/2024 10:29:11 0.21 0.00-0.70 (K/uL) Final Basos, Abs 03/13/2024 10:29:11 0.08 0.00-0.20 (K/uL) Final Immature Granulocytes, Number 03/13/2024 10:29:11 0.43 Above high normal 0.00-0.20 (K/uL) Final Performing Location [facility] [place] [address] [facility] [address]
--- OUTSIDE RECORDS SUMMARY | 2024-05-14 02:51 | External Medical Summary | Summary of Care ---
Author Name Unknown Organization [facility] Address [address] [place] [address] Phone [phone] Care Team Providers Care Erp Business Analyst Name Role Phone Unavailable Primary Care Provider Unavailabl e Reason for Visit * Reason Comments Ultrasound Encounter Details Date Type Department Care Team (Late st Contact Info) Description 03/04/2024 10:45 AM EST Office Visit Physician Anesthesiologist Obstetrics Maternal Medicine, [place] [address] [place], [place] [id number] Krys Park, [address] [place], [place] [phone] Short cervix during in second trimester*; 25 weeks gestation of ; Encounter for anatomic survey Allergies Active Allergy Reactions Criticality Noted Date Comments Food (See Comments) 08/11/2003 Banana allergy documented as of this encounter (statuses as of 03/04/2024) Medications Forte Oral Tablet Take by mouth. Active Iron-Vitamin C 65-125 MG Oral Tablet (Vitron C)Indications:Ant epartum anemia complicating Take 1 Tablet by mouth in the morning and 1 Tablet before bedtime. 60 Tablet 3 4 Active documented as of this encounter (statuses as of 03/04/2024) Active Problems Problem Noted Date Diagnosed Date [...] labor and demise with prematurity. Recommended [facility] referral, she was agreeable. Assessment & Plan (03/04/2024 11:57 AM EST): At your request, Livia was seen today due to short cervix seen on outside imaging. Report and images reviewed. Cervix ~2 cm at that time. Today cervix relatively stable at 1.8 cm without funneling. First delivery at [facility]; unsure exact gestational age but "near term" [...] currently 02/13/2024 Overview (02/13/2024): Last delivery at [facility]. From dates given pt would have [...] as of this encounter (statuses as of 03/04/2024) Immunizations Name Administration Dates Next Due Hepatitis [...] on file documented as of this encounter Progress Notes * Krys Park, DO - 03/04/2024 12:36 PM EST MATERNAL MEDICINE VISIT Livia Barcenas presented today at 25w6d for an ultrasound and follow-up of her high risk . She was seen for the following indications: Problem List Items Addressed This Visit Short cervix during in second trimester - Primary At your request, Livia was seen today due to short cervix seen on outside imaging. Report and images reviewed. Cervix ~2 cm at that time. Today cervix relatively stable at 1.8 cm without funneling. First delivery at [facility]; unsure exact gestational age but "near term" and weight 5#3 oz. We reviewed that based on current gestational age, no indication for ongoing cervical evaluation asthere is no indication for intervention (cerclage/progesterone) at this time. PTL/PPROM precautionsgiven and Livia encouraged to communicate any s/sx with her OB team as physical exam will be more important Other Visit Diagnoses 25 weeks gestation of Encounter for anatomic survey We reviewed today's ultrasound findings. Normal growth with no evidence of structural abnormalities, however exam suboptimal dueto position. Cervix measures 1.8 cm. (For full details, please refer to ultrasound report provided separately). Ms. Barcenas's questions were answered to her satisfaction. She was advised to contact our office orher OB provider for any additional questions regarding her . RECOMMENDATIONS: Recommend follow up ultrasound with MFM in 2 weeks for complete anatomy secondary to above indications. Thank you for allowing us to participate in the care of this patient. Please call with any questions. I spent a total of 41 minutes on the date of service in preparation, delivery, and documentation ofthe care provided to Livia Barcenas excluding any time spent in the performance of separately billed services. Krys Park DO 03/04/2024 12:36 PM documented in this encounter Miscellaneous Notes * Assessment & Plan Note - Krys Park DO - 03/04/2024 11:57 AM EST Associated Problem(s): Short cervix during in second trimester At your request, Livia was seen today due to short cervix seen on outside imaging. Report and images reviewed. Cervix ~2 cm at that time. Today cervix relatively stable at 1.8 cm without funneling. First delivery at [facility]; unsure exact gestational age but "near term" and infant weight 5#3 oz. We reviewed that based on current gestational age, no indication for ongoing cervical evaluation asthere is no indication for intervention (cerclage/progesterone) at this time. PTL/PPROM precautionsgiven and Livia encouraged to communicate any s/sx with her OB team as physical exam will be more important documented in this encounter Plan of Treatment Upcoming Encounters Date Type Department Care Team (Late st Contact Info) Description 03/13/2024 9:20 AM EST [facility] [address] [place] [phone] Valente Green [address] [place] [address] 03/13/2024 9:30 AM EST Office Visit Gynecology/Obstetrics Jil Green [address] [place] [address] Clarence Elder MD [address] [place] [phone] 04/03/2024 1:00 PM EST Imaging Maternal Medicine Imaging, Shaw Green [facility] [address] [place] [phone] Health Maintenance Due Date [...] of state, incidental Encounter for anatomic survey documented in this encounter
--- OUTSIDE RECORDS SUMMARY | 2024-05-14 02:51 | External Medical Summary ---
Author Name Unknown Address Unknown Organization K0G:LABORATORY [facility] [place] [address] [place] [address] Laboratory Report Ordering Provider Test Date Status DEXTER TALAVERA 04/23/2024 10:21:34 Final Observation Date Value Abnormality Reference (Units ) Status WBC, Total 04/23/2024 10:21:34 20.03 Above high normal 4 .00-10.80 (K/uL) Final RBC 04/23/2024 10:21:34 3.79 3.85-5.15 (M/uL) Final Hemoglobin 04/23/2024 10:21:34 10.0 Below low normal 12 .0-15.3 (g/dL) Final Anemia reflex testing trigge rs on a HGB < 12.0 for Females and HGB < 13.0 for Males in accordance with the WHO Anemia Guidelines
Anemia reflex testing triggers on a HGB < 12.0 for Females and HGB < 13.0 for Males in accordance with the WHO Anemia Guidelines HCT 04/23/2024 10:21:34 32.8 Below low normal 36. 0-45.2 (%) Final MCV 04/23/2024 10:21:34 86.5 81.5-97.5 (fL) Final MCH 04/23/2024 10:21:34 26.4 27.0-34.0 (pg) Final MCHC 04/23/2024 10:21:34 30.5 32.0-36.0 (g/dL) Final RDW 04/23/2024 10:21:34 17.3 11.5-15.5 (%) Final Platelets 04/23/2024 10:21:34 286 140-400 (K /uL) Final MPV 04/23/2024 10:21:34 11.2 6.6-11.1 ( fL) Final Performing Location LABORATORY [facility] [place] [address] [place] [address]
--- OUTSIDE RECORDS SUMMARY | 2024-05-14 02:51 | External Medical Summary | Summary of Care ---
Author Name Unknown Organization [facility] Address [address] [place] [address] Phone [phone] Care Team Providers Care Forest Logistics Manager Name Role Phone Unavailable Primary Care Provider Unavailabl e Encounter Details Date Type Department Care Team (Late st Contact Info) Description 04/03/2024 1:00 PM EST Office Visit Telecom Specialist Obstetrics Maternal Medicine, [address] [address] Krys Park, DO [address] [place] [address] Encounter for follow-up ultrasound of anatomy*; 30 weeks gestation of ; Ultrasound for screening for growth restriction Allergies Active Allergy Reactions Criticality Noted Date Comments Food (See Comments) 08/11/2003 Banana allergy documented as of this encounter (statuses as of 04/03/2024) Medications Forte Oral Tablet Take by mouth. Active Iron-Vitamin C 65-125 MG Oral Tablet (Vitron C)Indications:Ant epartum anemia complicating Take 1 Tablet by mouth in the morning and 1 Tablet before bedtime. 60 Tablet 3 4 Active documented as of this encounter (statuses as of 04/03/2024) Active Problems Problem Noted Date Diagnosed Date [...] 1.8 cm without funneling. First delivery at [facility]; unsure exact gestational age but "near [...] currently 02/13/2024 Overview (02/13/2024): Last delivery at [facility]. From dates given pt would have delivered at 36w6d. Late care affecting in second trimester 02/13/2024 Overview (02/13/2024): NOB at 23 weeks Tobacco use affecting , antepartum 01/25 Overview (02/13/2024): Has cut back. Recommended she quit. Smoking 1 cigar a day at NOB Estimated Date of Delivery Comme nts Yes 06/11/2024 Based on Ultraso und documented as of this encounter (statuses as of 04/03/2024) Immunizations Name Administration Dates Next Due Hepatitis [...] of this encounter Progress Notes * Krys Park DO - 04/03/2024 2:17 PM EST Livia presented today at 30w1d for an ultrasound for the following indications: Encounter for follow-up ultrasound of anatomy 30 weeks gestation of Ultrasound for screening for growth restriction Ultrasound summary: 30w 1d to complete the anatomy survey as well as assess growth. No evidence of structural abnormalities noted today. Normal interval growth with EFW 1378 g at 16%%ile. Normal CHRISTIN. I reviewed the ultrasound images. Livia was given the opportunity to meet with me if she had any questions. Please refer to the ultrasound report for additional details about today's ultrasound examination. RECOMMENDATIONS: Follow up with MFM for ultrasound as clinically indicated. See prior formal MFM consultation note. Thank you for allowing us to participate in the care of this patient. Please call with any questions. Krys Park DO 04/03/2024 2:17 PM documented in this encounter Plan of Treatment Upcoming Encounters Date Type Department Care Team (Late st Contact Info) Description 04/17/2024 9:15 AM EST Office Visit Gynecology/Obstetrics Jil Green [address] [place] [place] [id number] Grace Rain CRNP [address] [place] [address] Health Maintenance Due Date Last Done Comments [...] Author Reminders Care Plan OB Reminders No Hajahart, Provider documented as of this encounter Medical Devices Not on filedocumented as of this encounter Visit Diagnoses Diagnosis Short cervix during in second trimester- Primary 25 weeks gestation of state, incidental Encounter for anatomic survey Encounter for follow-up ultrasound of anatomy- Primary 30 weeks gestation of state, incidental Ultrasound for screening for growth restriction screening for growth retardation using ultrasonics documented in this encounter Additional Health Concerns Active Problems Noted Date Diagnosed Date OB Reminders 03/04/2024 documented as of this encounter
--- OUTSIDE RECORDS SUMMARY | 2024-05-14 02:51 | External Medical Summary ---
Author Name Unknown Address Unknown Organization K01:LABORATORY [facility] [place] - [address] [place] [address] Laboratory Report Ordering Provider Test Date Status DEXTER TALAVERA 04/23/2024 10:21:34 Final Observation Date Value Abnormality Reference (Units ) Status Iron 04/23/2024 10:21:34 17 Below low normal 33-151 (ug/dL) Final Iron-binding capacity 04/23/2024 10:21:34 452 Above high normal 250-425 (ug/dL) Final Transferrin Sat % 04/23/2024 10:21:34 4 Below low normal 15-55 (%) Final Performing Location LABORATORY C - [address] [place] [address]
--- OUTSIDE RECORDS SUMMARY | 2024-05-14 02:52 | External Medical Summary ---
Author Name Unknown Address Unknown Organization K01:LABORATORY [facility] [place] - [address] [place] [address] Laboratory Report Ordering Provider Test Date Status BOUBACAR LARA 02/13/2024 12:18:18 Final Observation Date Value Abnormality Reference (Units ) Status Iron 02/13/2024 12:18:18 31 Below low normal 33-151 (ug/dL) Final Iron-binding capacity 02/13/2024 12:18:18 426 Above high normal 250-425 (ug/dL) Final Transferrin Sat % 02/13/2024 12:18:18 7 Below low normal 15-55 (%) Final Performing Location LABORATORY [facility] [place] - [address] [place] [id number]
--- OUTSIDE RECORDS SUMMARY | 2024-05-14 02:52 | External Medical Summary | Summary of Care ---
Author Name Unknown Organization [facility] Address [address] [place] [address] Phone [phone] Care Team Providers Care Supervisor [place] Name Role Phone Unavailable Primary Care Provider Unavailabl e Reason for Referral * Evaluate & Treat - Unlimited Visits (Within 3 days (urgent)) - Pending Review Specialty Diagnoses / Procedures Referred By Cassy seaman Referred To Contact Obstetrics/Gynecology / Maternal Medicine Diagnoses Short cervix during in second trimester High-risk in second trimester History of delivery, currently Autistic disorder Late care affecting in second trimester Rosa Simmons PA-C [address] [place] [address] Phone: tel: fax: Referral ID Status Reason Start Date Expiration Date Visits Requested Visits Authorized [id number] Pending Review Specialty Services Required 4 [phone] Question Answer Referral Priority Within 3 days (urgent) Has the patient had a viability scan? Yes Date performed 02/13/2024 Location performed Radiology Reason for referral Other Please provide additional details Short cervix 2 cm at 23 weeks with questable funneling; history of labor at 36 weeks 6 days; late care with NOB at 23 weeks; pt is autisic Where should this appointment be scheduled? Jaswinder Comments /Para: LMP: Patient's last menstrual period was 08/17/2023. Patient is . MANUELITO: Not found. Pre-Gravid BMI: Could not be calculated. BMI at 23 weeks 20.26. Prefers phone call with scheduling. Numbers confirmed with her. Reason for Visit * Reason Comments New Visit Encounter Details Date Type Department Care Team (Late st Contact Info) Description 02/13/2024 11:00 AM EST Office Visit Gynecology/Obstetric s [facility] [address] [place] [address] Rosa Simmons PA-C [address] [place] [address] High-risk in second trimester*; Short cervix during in second trimester; History of delivery, currently ; Autistic disorder; Late care affecting in second trimester; Tobacco use affecting , antepartum Allergies Active Allergy Reactions Criticality Noted Date Comments Food (See Comments) 08/11/2003 Banana allergy documented as of this encounter (statuses as of 02/13/2024) Medications Forte Oral Tablet Take by mouth. Active documented as of this encounter (statuses as of 02/13/2024) Active Problems Problem Noted Date Diagnosed Date Short cervix during in second trimeste r 02/13/2024 Overview (02/13/2024): Cervix 2 cm with dating ultrasound at 23 weeks. Reviewed with patient. Discussed increase risk of labor and demise with prematurity. Recommended MFM referral, she was agreeable. High-risk in second trimester 02/13/20 24 History of delivery, currently 02/13/2024 Overview (02/13/2024): Last delivery at [facility]. From dates given pt would have delivered at 36w6d. Late care affecting in second trimester 02/13/2024 Overview (02/13/2024): NOB at 23 weeks Tobacco use affecting , antepartum 01/25 Overview (02/13/2024): Has cut back. Recommended she quit. Smoking 1 cigar a day at NOB Estimated Date of Delivery Comme nts Yes 06/11/2024 Based on Ultraso und documented as of this encounter (statuses as of 02/13/2024) Immunizations Name Administration Dates Next Due Hepatitis [...] Sign Reading Time Taken Comments Blood Pressure 122/76 02/13/2024 11:06 AM EST Pulse - - Temperature - - Respiratory Rate - - Oxygen Saturation - - Inhaled Oxygen Concentration - - Weight 46.3 kg (102 lb) 02/13/2024 11:06 AM EST Height 151.1 cm (4' 11.5") 02/13/2024 11:[address] Body Mass Index 20.26 02/13/2024 11:06 AM EST documented in this encounter Progress Notes * Rosa Simmons PA-C - 02/13/2024 4:11 PM EST CC: NOB HPI: Livia Barcenas is a 28 year old female here for initial OB exam. MANUELITO 06/11/2024 by second trimester ultrasound completed today. LMP around 08/17/2023. Her periods were not regular. Did not know she was until started to show with bump per patient. Missing periods was not uncommon for her. Patient is autistic. Here today with partner and FOB. Her dating ultrasound today showed cervix 2 cm -- short with ? Funneling. Final report pending at time of appointment. Patient denies any current signs of labor. No LOF, VB, contractions. Patient made aware of these findings. Patient reports due date of first child 08/30/2021. Delivery 08/08/2021. This would have made her 36w6d. She did go into labor with labor pains per patient. Smokes, was pack a day. Switched to cigars and smoking 1 a day. Trying to cut back. She is taking vitamins. Reviewed PMH, social hx, family hx, surgical hx, ob hx with patient. Discussed Qnatal and Quad screen. Reviewed current medications with patient. Last pap smear 2021 with Manas Gomez per patient. Normal. Patient nausea in room during visit. Given trash can, snacks and drink. Patient prefers to defer pelvic and breast exam until next visit d/t nausea and concerns for vomiting. Dwight Depression Scale: No data recorded Dwight suicide question and score: Score of 3 = Yes, quite often. Score of 2 = Sometimes. Score of 1 = Hardly ever No data recorded OB History Para Term AB Living 1 1 1 SAB IAB Ectopic Multiple Live Births 1 # Outcome Date GA Lbr Alcides/2nd Weight Sex Type Anes PTL Lv 1A Term 08/08/21 2.381 kg (5 lb 4 oz) F Vag-Spont 1B Current Past Medical History: Diagnosis Date Autism dx age 13 by parent report- high function Social History Socioeconomic History Marital status: Single Tobacco Use Smoking status: Never Smokeless tobacco: Never Substance and Sexual Activity Sexual activity: Yes Partners: Male No past surgical history on file. Current Outpatient Medications Medication Sig Dispense Refill Forte Oral Tablet Take by mouth. No current facility-administered medications for this visit. Review of patient's allergies indicates: Allergen Reactions Food (See Comments) Banana allergy No family history on file. Denies family history of genetic conditions in patient's and FOB's families. ROS: General: no fevers, chills CV: no chest pain, SOB GI: no constipation, diarrhea, + nausea Breast: no masses, nipple discharge : no vaginal bleeding, unusual vaginal discharge, dysuria Psychological: no anxiety, depression, SI/HI PHYSICAL EXAM: please see physical ASSESSMENT/PLAN: High-risk in second trimester (Primary) - CULTURE, URINE, QUANTITATIVE - TYPE AND SCREEN; Future; Expected date: 02/13/2024 - RUBELLA IGG ANTIBODY; Future; Expected date: 02/13/2024 - HEPATITIS B SURFACE ANTIGEN; Future; Expected date: 02/13/2024 - HIV ANTIGEN & ANTIBODY SCREEN W/ CONFIRMATION; Future; Expected date: 02/13/2024 - CHLAMYDIA TRACHOMATIS AND NEISSERIA GONORRHOEAE, AMPLIFIED PROBE - ABO/RH; Future; Expected date: 02/13/2024 - CBC WITH WBC DIFFERENTIAL AND ANEMIA REFLEX WORKUP; Future; Expected date: 02/13/2024 - HEPATITIS C ANTIBODY SCREEN WITH PROGRESSION TO HEPATITIS C RNA QUANTITATIVE; Future; Expected date: 02/13/2024 - SYPHILIS ANTIBODY SCREEN WITH REFLEX TO RPR; Future; Expected date: 02/13/2024 - [facility] US MATERNAL 1ST FETUS; Future; Expected date: 02/13/2024 - MATERNAL MEDICINE REFERRAL OP Short cervix during in second trimester Reviewed with her at appointment. Discussed increase concern for labor and demise d/t prematurity. Recommended [facility] referral, pt agreeable -- a 3 day urgent referral placed. Phone numbers in chart confirmed. Pt is aware they will be reaching out to her to schedule. - [facility] US MATERNAL 1ST FETUS; Future; Expected date: 02/13/2024 - MATERNAL MEDICINE REFERRAL OP History of delivery, currently - [facility] US MATERNAL 1ST FETUS; Future; Expected date: 02/13/2024 - MATERNAL MEDICINE REFERRAL OP Autistic disorder - [facility] US MATERNAL 1ST FETUS; Future; Expected date: 02/13/2024 - MATERNAL MEDICINE REFERRAL OP Late care affecting in second trimester - [facility] US MATERNAL 1ST FETUS; Future; Expected date: 02/13/2024 - MATERNAL MEDICINE REFERRAL OP - Discussed timing of routine OB care - recommended Covid and flu vaccine due to increased risk of severe disease in . - Offered genetic screening and explained that screening does not provide a definitive diagnosis. Patient will notify office if desires. - Recommended clean healthy diet and discussed foods/drinks to avoid in . Discussed recommend weight gain in . - Counseled on OTC measures to help alleviate nausea and advised to call if these are ineffective - Recommended daily vitamin. - Discussed labs as ordered and instructed patient to present to lab following appointment. - M referral indicated - RTO in 2 weeks for ROBERT -- will need breast and pelvic exam at that time as declined today due to nausea and pt feeling she was going to vomit. Plan 30 minute return. PRN with concern Rosa Simmons PA-C documented in this encounter Plan of Treatment Upcoming Encounters Date Type Department Care Team (Late st Contact Info) Description 02/18/2024 10:45 AM EST Office Visit Veneer Drier Tailer Obstetrics Maternal Medicine, [place] [address] [place] [address] Cody Medel MD [address] [place] [address] 02/18/2024 10:45 AM EST Imaging Radiology [facility], [place] [address] [place] [address] 02/28/2024 1:30 PM EST Office Visit Gynecology/Obstetrics [facility] [address] [place] [address] Adrianna Sampson CRNP [address] [facility] [place] [address] Pending Results Name Type Priority Associated Diagnoses Date /Time TYPE AND SCREEN Lab Routine Short cervix during in second trimester High-risk in second trimester 02/13/2024 12:29 PM EST RUBELLA IGG ANTIBODY Lab Routine Short cervix during in second trimester High-risk in second trimester 02/13/2024 12:18 PM EST HEPATITIS B SURFACE ANTIGEN Lab Routine Short cervix during in second trimester High-risk in second trimester 02/13/2024 12:18 PM EST HIV ANTIGEN & ANTIBODY SCREEN W/ CONFIRMATION Lab Routine Short cervix during in second trimester High-risk in second trimester 02/13/2024 12:18 PM EST ABO/RH Lab Routine Short cervix during in second trimester High-risk in second trimester 02/13/2024 12:18 PM EST CBC WITH WBC DIFFERENTIAL AND ANEMIA REFLEX WORKUP Lab Routine Short cervix during in second trimester High-risk in second trimester 02/13/2024 12:18 PM EST HEPATITIS C ANTIBODY SCREEN WITH PROGRESSION TO HEPATITIS C RNA QUANTITATIVE Lab Routine Short cervix during in second trimester High-risk in second trimester 02/13/2024 12:18 PM EST SYPHILIS ANTIBODY SCREEN WITH REFLEX TO RPR Lab Routine Short cervix during in second trimester High-risk in second trimester 02/13/2024 12:18 PM EST Scheduled Orders Name Type Priority Associated Diagnoses Orde r Schedule CULTURE, URINE, QUANTITATIVE Lab Routine High-risk in second trimester Ordered: 02/13/2024 TYPE AND SCREEN Lab Routine High-risk in second trimester Expected: 02/13/2024 (Approximate), Expires: 03/14/2025 RUBELLA IGG ANTIBODY Lab Routine High-risk in second trimester Expected: 02/13/2024 (Approximate), Expires: 02/12/2025 HEPATITIS B SURFACE ANTIGEN Lab Routine High-risk in second trimester Expected: 02/13/2024 (Approximate), Expires: 02/12/2025 HIV ANTIGEN & ANTIBODY SCREEN W/ CONFIRMATION Lab Routine High-risk in second trimester Expected: 02/13/2024, Expires: 02/12/2025 CHLAMYDIA TRACHOMATIS AND NEISSERIA GONORRHOEAE, AMPLIFIED PROBE Lab Routine High-risk in second trimester Ordered: 02/13/2024 ABO/RH Lab Routine High-risk in second trimester Expected: 02/13/2024, Expires: 03/14/2025 CBC WITH WBC DIFFERENTIAL AND ANEMIA REFLEX WORKUP Lab Routine High-risk in second trimester Expected: 02/13/2024, Expires: 02/12/2025 HEPATITIS C ANTIBODY SCREEN WITH PROGRESSION TO HEPATITIS C RNA QUANTITATIVE Lab Routine High-risk in second trimester Expected: 02/13/2024, Expires: 02/12/2025 SYPHILIS ANTIBODY SCREEN WITH REFLEX TO RPR Lab Routine High-risk in second trimester Expected: 02/13/2024, Expires: 02/12/2025 [facility] US MATERNAL 1ST FETUS Medical Imaging Routine Short cervix during in second trimester High-risk in second trimester History of delivery, currently Autistic disorder Late care affecting in second trimester Expected: 02/13/2024, Expires: 03/14/2025 Scheduled Referrals Name Type Priority Associated Diagnoses Orde r Schedule MATERNAL MEDICINE REFERRAL OP Referral Within 3 days (urgent) Short cervix during in second trimester High-risk in second trimester History of delivery, currently Autistic disorder Late care affecting in second trimester Ordered: 02/13/2024 Health Maintenance Due Date Last Done Comments Depression Screening 2005 HIV Screening 2008 Hepatitis C Screening 10/14/2011 Pap Smear 2014 Cervical Cancer Screening 10/14/2023 [...] delivery, currently with history of pre-term labor Autistic disorder Autistic disorder, current or active state Late care affecting in second trimester Tobacco use affecting , antepartum documented in this encounter
--- OUTSIDE RECORDS SUMMARY | 2024-05-14 02:52 | External Medical Summary | Summary of Care ---
Author Name Unknown Organization [facility] Address [address] [place] [address] Phone [phone] Care Team Providers Care Laundry Housekeeper Name Role Phone Unavailable Primary Care Provider Unavailabl e Reason for Visit * Reason Onset Date Comments Referral 02/13/2024 Encounter Details Date Type Department Care Team (Late st Contact Info) Description 02/13/2024 Telephone Control Systems Technician Obstetrics Maternal Medicine, [place] [address] [place], [place] [phone] [place], Nurse Control Systems Technician [facility] [address] [place], [place] [phone] Referral Allergies Active Allergy Reactions Criticality Noted Date [...] drink = 0.6 oz pur e alcohol) Comments Yes Sex and Gender Information Value Date Recorded Sex Assigned at Not on file Legal Sex Female 7:13 AM EST Gender Identity Not on file Sexual Orientation Not on file documented as of this encounter Miscellaneous Notes * Telephone Encounter - Milagros Blount OSA - 02/13/2024 2:25 PM EST Spoke with Livia. Her referral recommends that she be seen this week, I did not pull any appts. Kashifached out to our sonographers for help, she was offered an appt. For tomorrow she stated she would not be able to make it. I reiterated that the sonographers stated the sooner we see her the betterand she still stated she would not be able to make it this week. She was offered and appt. On Sunday, she took that. Appointment scheduled. Patient aware of date, time and location of Maternal Medicine appointment. * Telephone Encounter - Kristy Cullen CCMA - 02/13/2024 12:53 PM EST Estimated Date of Delivery: 06/11/24 Please schedule for LONG SCAN, in time frame of WITHIN THIS WEEK at location [facility] with the indication of short cervix 2cm @ 23wks with questionable funneling, hx PTD 36w6d, autism, late care. Referring Provider: Rosa Simmons PA-C documented in this encounter Plan of Treatment Upcoming Encounters Date Type Department Care Team (Late st Contact Info) Description 02/18/2024 10:45 AM EST Office Visit Control Systems Technician Obstetrics Maternal Medicine, [address] [place] [address] Cody Crawford MD [address] [place] [address] 02/18/2024 10:45 AM EST Imaging Radiology [facility] [place] [address] [place] [address] 02/28/2024 1:30 PM EST Office Visit Gynecology/Obstetrics [facility] [address] [facility] [place] [address] Adrianna Sampson CRNP [address] [place] [address] Health Maintenance Due Date Last Done Comments [...]
--- OUTSIDE RECORDS SUMMARY | 2024-05-14 02:52 | External Medical Summary ---
Author Name Unknown Address Unknown Organization [id number]:LABORATORY [facility] [place] - [address] [place] [address] Laboratory Report Ordering Provider Test Date Status BOUBACAR LARA 02/13/2024 12:18:18 Final Observation Date Value Abnormality Reference (Units ) Status Rubella virus IgG Ab [Presence] in Serum 02/13/2024 12:18:18 Positive Abnormal Negative Final A positive result is consist ent with having had rubella virus or vaccination. Performing Location LABORATORY [facility] - [address] [place] [address]
--- OUTSIDE RECORDS SUMMARY | 2024-05-14 02:52 | External Medical Summary ---
Author Name Unknown Address Unknown Organization [id number]:LABORATORY [facility] [place] - [address] [place] [id number] Laboratory Report Ordering Provider Test Date Status BOUBACAR LARA 02/28/2024 14:09:28 Final Observation Date Value Abnormality Reference (Units) Status Bacteria identified in Specimen by Culture 02/28/2024 14:09:28 No significant growth Final Test: Culture, Urine, Quanti tative
Specimen Source: Urine, Clean Catch
Specimen Type: Urine
Specimen Date: 02/28/2024 1409
Result Date: 03/01/2024 0815
Result Status: Final result
Resulting Lab: LABORATORY [facility]
[address]
[facility] [address]

CULTURE

No significant growth

null Performing Location LABORATORY [facility] [place] - [address] [facility] [address]
--- OUTSIDE RECORDS SUMMARY | 2024-05-14 02:52 | External Medical Summary | Summary of Care ---
Author Name Unknown Organization [facility] Address [address] [place] [address] Phone [phone] Care Team Providers Care Government Guard Name Role Phone Unavailable Primary Care Provider Unavailabl e Encounter Details Date Type Department Care Team (Late st Contact Info) Description 02/14/2024 Telephone Other Wood Processing Machine Operator Obstetrics Maternal Medicine, [place] [address] [place], [place] [phone] [place], Nurse Other Wood Processing Machine Operator [facility] [address] [place], [place] [phone] Allergies Active Allergy Reactions Criticality Noted Date Comments Food (See Comments) 08/11/2003 Banana allergy documented as of this encounter (statuses as of 02/20/2024) Medications Forte Oral Tablet Take by mouth. Active documented as of this encounter (statuses as of 02/20/2024) Active Problems Problem Noted Date Diagnosed Date [...] currently 02/13/2024 Overview (02/13/2024): Last delivery at [facility]. From dates given pt would have [...] as of this encounter (statuses as of 02/20/2024) Immunizations Name Administration Dates Next Due DTP/HIB [...] encounter Miscellaneous Notes * Telephone Encounter - Rosa Simmons PA-C - 02/20/2024 8:10 AM EST Routing back. Spoke with patient just now by phone. She is still willing to see MFM. She had written down scheduled on 02/26/2024 at 12;30 pm with MFM. I don't see that scheduled in chart. Can you please reach back out to her to schedule her and confirm date/time? Adrianna -- routing to you as FYI as patient is schedule with you 02/27 * Telephone Encounter - Rosa Simmons PA-C - 02/20/2024 8:04 AM EST Called and spoke with patient. She stated did not refuse to see them. She had written down that she was scheduled in [place] on 02/26/2024 at 12:30 pm in [place]. She states just couldn't come when previously scheduled d/t being out of town. I asked if she was still willing to see MFM and she said yes. I advised I would still recommend shesee them as she is at risk for labor d/t short cervix at 24 weeks If any s/sx of labor needs to head to nearest L&D [facility]. She voiced understanding of all * Telephone Encounter - Kristy Cullen CCMA - 02/18/2024 11:41 AM EST Patient refusing MFM appts. Sending message to referring provider (Rosa Simmons PA-C) to make aware. * Telephone Encounter - Milagros Blount OSA - 02/14/2024 9:10 AM EST Pt. Called in to cancel appt. Due to transportation issues. I offered her assistance in getting transportation, she declined and stated she wouldn't be in town. Pt. Did not reschedule appt. Stating she didn't know if she could make it work. I offered to reach out about transportation again and pt. Again declined. Appt. Was cancelled. documented in this encounter Plan of Treatment Upcoming Encounters Date Type Department Care Team (Late st Contact Info) Description 02/28/2024 1:30 PM EST [facility] [address] [place] [address] Adrianna Sampson CRNP [address] [place] [address] Health Maintenance Due Date Last Done Comments [...]
--- OUTSIDE RECORDS SUMMARY | 2024-05-14 02:52 | External Medical Summary | Summary of Care ---
Author Name Unknown Organization [facility] Address [address] [place] [address] Phone [phone] Care Team Providers Care Inspector Fuel Hose Name Role Phone Unavailable Primary Care Provider Unavailabl e Reason for Visit * Reason Onset Date Comments Test Results 02/13/2024 Unexpected or In determinate Result Encounter Details Date Type Department Care Team (Late st Contact Info) Description 02/13/2024 Telephone Gynecology/Obstetrics [facility] [address] [place] [address] Adrianna Sampson CRNP [address] [address] Test Results (Unexpected or Indeterminate ... Allergies Active Allergy Reactions Criticality Noted Date Comments Food (See Comments) 08/11/2003 Banana allergy documented as of this encounter (statuses as of 02/13/2024) Medications Forte Oral Tablet Take by mouth. Active documented as of this encounter (statuses as of 02/13/2024) Immunizations Name Administration Dates Next Due DTP/HIB [...] encounter Miscellaneous Notes * Telephone Encounter - Adrianna Sampson CRNP - 02/13/2024 11:53 AM EST Was seen 02/13/2024 by a different provider and discussed findings. * Telephone Encounter - Suzanna Hernandez OSA - 02/13/2024 11:47 AM EST Hello- The radiologist discovered an unexpected or indeterminate finding on Livia Barcenas ([id number]) and asks that you review the following report. Study Type:US PREG LIMITED 1 OR MORE FETUSES Date of Study: 02/13/2024 IMPRESSION 1. Composite age 23 weeks 0 days and due date 06/11/2024. 2. Short cervix measuring 2 cm in length. Please respond to this encounter to acknowledge receipt of this message and take responsibility to ensure this report is reviewed. Thank you, CHRISTINE Valente Client Service Rep [facility] documented in this encounter Plan of Treatment Health Maintenance Due Date Last Done Comments [...]
--- OUTSIDE RECORDS SUMMARY | 2024-05-14 02:52 | External Medical Summary ---
Author Name Unknown Address Unknown Organization K01:[facility]ORY [facility] - [address] [place] [address] Laboratory Report Ordering Provider Test Date Status BOUBACAR LARA 02/13/2024 12:29:53 Final Observation Date Value Abnormality Reference (Units ) Status ABO 02/13/2024 12:29:53 O Final RH 02/13/2024 12:29:53 Positive Final RED BLOOD CELL ANTIBODY SCREEN 02/13/2024 12:29:53 Negative Final SPECIMEN EXPIRATION DATE 02/13/2024 12:29:53 02/16/2024 23:59 Final Performing Location [facility]ORY [facility] - [address] [place] [address]
--- OUTSIDE RECORDS SUMMARY | 2024-05-14 02:52 | External Medical Summary ---
Author Name Unknown Address Unknown Organization K01:LABORATORY [facility] [place] - [address] [facility] [address] Laboratory Report Ordering Provider Test Date Status BOUBACAR LARA 02/13/2024 12:18:18 Final Observation Date Value Abnormality Reference (Units ) Status Creatinine 02/13/2024 12:18:18 0.5 0.5-1.0 (mg/dL) Final Glomerular filtration rate/1.73 sq M.predicted [Volume Rate/Area] in Serum, Plasma or Blood by Creatinine-based formula (CKD-EPI) 02/13/2024 12:18:18 >90 >=60 (mL/min) Final eGFR is calculated based on the CKD-EPI 2020 equation. Performing Location LABORATORY [facility] [place] - [address] [facility] [address]
--- OUTSIDE RECORDS SUMMARY | 2024-05-14 02:52 | External Medical Summary ---
Author Name Unknown Address Unknown Organization K01:LABORATORY [address] [address] Laboratory Report Ordering Provider Test Date Status BOUBACAR LARA 02/13/2024 12:18:18 Final Observation Date Value Abnormality Reference (Units ) Status HIV 1+2 Ab+HIV1 p24 Ag [Presence] in Serum or Plasma by Immunoassay 02/13/2024 12:18:18 Negative Negative Final Negative HIV-1/2 antigen and antibody screening tset results usually indicate the absence of HIV-1 and HIV-2 infection. However, such negative results do not rule-out acute HIV infection. If acute HIV-1 infection is highly suspected, it is recommended that a specimen be submitted for detection of HIV-1 RNA. Performing Location LABORATORY [facility] [place] - [address] [facility] [address]
--- OUTSIDE RECORDS SUMMARY | 2024-05-14 02:52 | External Medical Summary ---
Author Name Unknown Address Unknown Organization K01:LABORATORY [facility] [place] - [address] [facility] [address] Laboratory Report Ordering Provider Test Date Status JANEBOUBACAR 02/13/2024 12:18:18 Final Observation Date Value Abnormality Reference (Units ) Status Retic, % (auto) 02/13/2024 12:18:18 1.72 0.80-1.90 (%) Final Reticulocytes, Absolute 02/13/2024 12:18:18 70.0 31.3-100.1 (K/uL) Final Reticulocyte fraction, immature 02/13/2024 12:18:18 23.3 Above high normal 2.5-20.6 (%) Final Reticulocyte HGB 02/13/2024 12:18:18 31.0 29.7-37.4 (pg) Final Performing Location LABORATORY [facility] [place] - [address] [facility] [address]
--- OUTSIDE RECORDS SUMMARY | 2024-05-14 02:52 | External Medical Summary | Summary of Care ---
Author Name Unknown Organization [facility] Address [address] [place] [address] Phone [phone] Care Team Providers Care Foundry Tender Name Role Phone Unavailable Primary Care Provider Unavailabl e Reason for Visit * Reason Onset Date Comments Order Request 02/01/2024 Dating us Encounter Details Date Type Department Care Team (Late st Contact Info) Description 02/01/2024 Telephone Gynecology/Obstetrics [facility] [address] [facility] [place] [address] Adrianna Sampson CRNP [address] [place] [address] Order Request (Dating us ) Allergies Active Allergy Reactions Criticality Noted Date Comments Food (See Comments) 08/11/2003 Banana allergy documented as of this encounter (statuses as of 02/04/2024) Medications No known medicationsdocumented as of this encounter (statuses as of 02/04/2024) Immunizations Name Administration Dates Next Due Hepatitis [...] drink = 0.6 oz pur e alcohol) Utilities Answer Date Recorded Do you have trouble paying y our heating, water, or electric bill? (Adult - for ages 18 years and over) Not on file 09/11/2023 Is your family able to pay t he heat, water, or electric bill? (Household - for ages 0-17 years) Not on file 09/11/2023 Does your family have access to good internet? (Household - for ages 0-17 years) Not on file 09/11/2023 Social Connections Answer Date Recorded How often do you feel lonely or isolated from those around you? (Adult - for ages 18 years and over) Not on file 09/11/2023 Comments No Sex and Gender Information Value Date Recorded Sex Assigned at Not on file Legal Sex Female 7:13 AM EST Gender Identity Not on file Sexual Orientation Not on file documented as of this encounter Miscellaneous Notes * Telephone Encounter - Mica Patterson OSA - 02/01/2024 2:44 PM EST Dating US scheduled prior to NOB; Please place order and send back to me documented in this encounter Plan of Treatment Upcoming Encounters Date Type Department Care Team (Late st Contact Info) Description 02/07/2024 8:30 AM EST Nurse Only Gynecology/Obstetrics [facility] [address] [place] [address] G[place], Nurse Performance Test Architect [facility] [address] [place] [address] 02/13/2024 10:15 AM EST Imaging Radiology [facility] [address] [place] [address] 02/13/2024 11:00 AM EST Office Visit Gynecology/Obstetrics [facility] [address] [place] [address] Rosa Simmons PA-C [address] [place] [address] Scheduled Orders Name Type Priority Associated Diagnoses Orde r Schedule US PELVIS TRANS-VAGINAL OB Medical Imaging Routine Early stage of Expected: 02/04/2024 (Approximate), Expires: 03/05/2025 Health Maintenance Due Date Last Done Comments Depression Screening 2005 HIV Screening 2008 Hepatitis C Screening 10/14/2011 Pap Smear 2014 DTap/Tdap Vaccines (6 - Td or Tdap) 09/30/2015 09/29/2005, 11/15/1998, 08/24/1995, Additional history exists Cervical Cancer Screening 10/14/2023 HPV/Co-Test 10/14/2023 COVID-19 Vaccine ( season) 2023 Influenza Vaccine (FLU shot) (#1) 2023 01/05/2011, 01/28/2010, 02/05/2007, Additional history exists Hepatitis B Vaccine Completed 04/24/1994, 1993, 1993 HPV (Gardasil) Vaccine Aged Out No lo [...] as of this encounter Visit Diagnoses Diagnosis Early stage of - Primary documented in this encounter
--- OUTSIDE RECORDS SUMMARY | 2024-05-14 02:52 | External Medical Summary | Summary of Care ---
Author Name Unknown Organization [facility] Address [address] [place] [address] Phone [phone] Care Team Providers Care Coal Miner Name Role Phone Unavailable Primary Care Provider Unavailabl e Reason for Visit * Reason Onset Date Comments Test Results 02/14/2024 Encounter Details Date Type Department Care Team (Late st Contact Info) Description 02/14/2024 Telephone Gynecology/Obstetrics [facility] [address] [place] [address] Rosa Simmons PA-C [address] [place] [address] Test Results Allergies Active Allergy Reactions Criticality Noted Date Comments Food (See Comments) 08/11/2003 Banana allergy documented as of this encounter (statuses as of 02/14/2024) Medications Forte Oral Tablet Take by mouth. Active Iron-Vitamin C 65-125 MG Oral Tablet (Vitron C)Indications:Ant epartum anemia complicating Take 1 Tablet by mouth in the morning and 1 Tablet before bedtime. 60 Tablet 3 4 Active documented as of this encounter (statuses as of 02/14/2024) Active Problems Problem Noted Date Diagnosed Date [...] of labor and demise with prematurity. Recommended [facility] referral, she was agreeable. High-risk in second trimester 02/13/20 24 History of delivery, currently 02/13/2024 Overview (02/13/2024): Last delivery at [facility]. From dates given pt would have [...] as of this encounter (statuses as of 02/14/2024) Immunizations Name Administration Dates Next Due DTP/HIB [...] Telephone Encounter - Lindy Mares LPN - 02/14/2024 1:34 PM EST Patient notified. Voiced understanding * Telephone Encounter - Richa Sanchez LPN - 02/14/2024 1:32 PM EST left message for patient to call office * Telephone Encounter - Rosa Simmons PA-C - 02/14/2024 1:17 PM EST Blood work showed anemia. She needs to start twice daily oral iron pill. Will plan to recheck labs in about 4-5 weeks. Iron can cause constipation and darken stools. She can take Colace for constipation. I sent prescription to pharmacy for her. Rosa Simmons PA-C documented in this encounter Plan of Treatment Upcoming Encounters Date Type Department Care Team (Late st Contact Info) Description 02/28/2024 1:30 PM EST Office Visit Gynecology/Obstetrics [facility] [address] [place] [address] Adrianna Sampson CRNP [address] [place] [address] Health Maintenance Due Date Last Done Comments Depression Screening 2005 Pap Smear 2014 Cervical Cancer Screening 10/14/2023 HPV/Co-Test 10/14/2023 COVID-19 Vaccine ( season) 2023 Influenza Vaccine (FLU shot) (#1) 2023 01/05/2011, 01/28/2010, 01/28/2010, Additional history exists DTap/Tdap Vaccines (7 - Td or Tdap) 06/21/2031 06/20/2021, 09/29/2005, 11/15/1998, Additional history exists Hepatitis B Vaccine Completed 04/24/1994, 04/24/1994, 1993, Additional history exists HIV Screening Completed 02/13/2024 Hepatitis C Screening Completed 02/13/2024 , 02/13/2024, 02/13/2024 HPV (Gardasil) Vaccine Aged Out No lo [...] as of this encounter Visit Diagnoses Diagnosis Antepartum anemia complicating - Primary Anemia, antepartum documented in this encounter
--- OUTSIDE RECORDS SUMMARY | 2024-05-14 02:52 | External Medical Summary | Summary of Care ---
Author Name Unknown Organization [facility] Address [address] [place] [address] Phone [phone] Care Team Providers Care Elevator Starter Name Role Phone Unavailable Primary Care Provider Unavailabl e Encounter Details Date Type Department Care Team (Late st Contact Info) Description 02/14/2024 Telephone Steam Setter Obstetrics [facility], [place] [address] [place], [place] [phone] [place], Nurse Steam Setter [facility] [address] [place], [place] [phone] Allergies Active Allergy Reactions Criticality Noted Date Comments Food (See Comments) 08/11/2003 Banana allergy documented as of this encounter (statuses as of 02/18/2024) Medications Forte Oral Tablet Take by mouth. Active documented as of this encounter (statuses as of 02/18/2024) Active Problems Problem Noted Date Diagnosed Date [...] currently 02/13/2024 Overview (02/13/2024): Last delivery at [facility]. From dates given pt would have delivered at 36w6d. Late care affecting in second trimester 02/13/2024 Overview (02/13/2024): NOB at 23 weeks Tobacco use affecting , antepartum 01/25 Overview (02/13/2024): Has cut back. Recommended she quit. Smoking 1 cigar a day at NOB Estimated Date of Delivery Comme nts Yes 06/11/2024 Based on Ultraso und documented as of this encounter (statuses as of 02/18/2024) Immunizations Name Administration Dates Next Due DTP/HIB [...] encounter Miscellaneous Notes * Telephone Encounter - Kristy Cullen CCMA [...] Office Visit Gynecology/Obstetrics [facility] [address] [place] [address] Adrianna Sampson CRNP [address] [place] [address] Health Maintenance Due Date Last Done Comments [...]
--- OUTSIDE RECORDS SUMMARY | 2024-05-14 02:52 | External Medical Summary ---
Author Name Unknown Address Unknown Organization K01:LABORATORY [facility] [place] - [address] [facility] [address] Laboratory Report Ordering Provider Test Date Status BOUBACAR LARA 02/13/2024 12:18:18 Final Observation Date Value Abnormality Reference (Units ) Status Treponema pallidum Ab [Presence] in Serum by Immunoassay 02/13/2024 12:18:18 Nonreactive Nonreactive Final No serologic evidence of syp hilis. No additional testing clinicially indicated at this time. Consider repeat testing in 2-4 weeks if acute or primary syphilis is suspected. Performing Location LABORATORY [facility] [place] [facility] [address] [facility] [place] [address]
--- OUTSIDE RECORDS SUMMARY | 2024-05-14 02:52 | External Medical Summary | Summary of Care ---
Author Name Unknown Organization [facility] Address [address] [place] [address] Phone [phone] Care Team Providers Care Jumpbasting Armhole Baster Name Role Phone Unavailable Primary Care Provider Unavailabl e Reason for Visit * Reason Onset Date Comments Test Results 02/14/2024 Encounter Details Date Type Department Care Team (Late st Contact Info) Description 02/14/2024 Telephone Gynecology/Obstetrics [facility] [address] [place] [address] Rosa Simmons PA-C [address] [place] [address] Test Results Allergies Active Allergy Reactions Criticality [...] of labor and demise with prematurity. Recommended [facility] referral, she was agreeable. High-risk in second trimester 02/13/20 24 History of delivery, currently 02/13/2024 Overview (02/13/2024): Last delivery at [facility]. From dates given pt would have [...] J[facility] Green [address] [place] [address] Adrianna Sampson CRNP [address] [place] [address] Health Maintenance Due Date Last Done Comments [...]
--- OUTSIDE RECORDS SUMMARY | 2024-05-14 02:52 | External Medical Summary ---
Author Name Unknown Address Unknown Organization K01:LAB[facility]ATORY [facility] - [address] [facility] [address] Laboratory Report Ordering Provider Test Date Status BOUBACAR LARA 02/13/2024 12:18:18 Final Observation Date Value Abnormality Reference (Units ) Status Ferritin 02/13/2024 12:18:18 11 Below low normal 13- 150 (ng/mL) Final Performing Location LABORATORY [facility] - [address] [facility] [address]
--- OUTSIDE RECORDS SUMMARY | 2024-05-14 02:52 | External Medical Summary ---
Author Name Unknown Address Unknown Organization K0G:LABORATORY [facility] [place] [address] - [address] [place] [address] Laboratory Report Ordering Provider Test Date Status BOUBACAR LARA 02/13/2024 12:18:18 Final Observation Date Value Abnormality Reference (Units ) Status SYNC LEUKOCYTES IN BLOOD BY AUTOMATED COUNT 02/13/2024 12:18:18 22.70 Above high normal 4.00-10.80 (K/uL) Final Segs 02/13/2024 12:18:18 79.5 Above high normal 40.0-75.0 (%) Final Lymphs % 02/13/2024 12:18:18 14.6 Below low normal 18.0-42.0 (%) Final Monos 02/13/2024 12:18:18 5.1 1.0-11.0 (%) Final Eosinophils 02/13/2024 12:18:18 0.5 0.0-6.0 (%) Final Basos 02/13/2024 12:18:18 0.3 0.0-2.0 (%) Final Absolute Segs 02/13/2024 12:18:18 18.05 Above high normal 1.80-7.70 (K/uL) Final Lymphs, absolute 02/13/2024 12:18:18 3.31 1.00-4.80 (K/ul) Final Monos, Abs 02/13/2024 12:18:18 1.16 Above high normal 0.00-1.10 (K/uL) Final Eos, Abs 02/13/2024 12:18:18 0.12 0.00-0.70 (K/uL) Final Basos, Abs 02/13/2024 12:18:18 0.06 0.00-0.20 (K/uL) Final Performing Location LABORATORY [facility] [place] [facility] 0 - [address] [place] [address]
--- OUTSIDE RECORDS SUMMARY | 2024-05-14 02:52 | External Medical Summary | Summary of Care ---
Author Name Unknown Organization [facility] Address [address] [place] [address] Phone [phone] Care Team Providers Care Electrotyper Apprentice Name Role Phone Unavailable Primary Care Provider Unavailabl e Encounter Details Date Type Department Care Team (Late st Contact Info) Description 02/14/2024 Telephone Welfare Interviewer Obstetrics [facility]aternal [facility], [place] [address] [place], [place] [phone] [place], Nurse Welfare Interviewer [facility] [address] [place], [place] [phone] Allergies Active Allergy Reactions Criticality Noted Date [...] currently 02/13/2024 Overview (02/13/2024): Last delivery at [facility]. From dates given pt would have [...] Telephone Encounter - Milagros Blount OSA - 02/20/2024 10:43 AM EST Spoke with Livia. Appointment scheduled. Patient aware of date, time and location of Maternal FetalMedicine appointment. * Telephone Encounter - Rosa Simmons PA-C [...] written down that she was scheduled in [place] on 02/26/2024 at 12:30 pm in [place]. She states just couldn't come when previously [...] 02/28/2024 1:30 PM EST Office [facility] [address] [place] [address] Adrianna Sampson CRNP [address] [place] [address] 03/04/2024 10:45 AM EST Office Visit Welfare Interviewer Obstetrics Maternal Medicine, [place] [address] [place] [address] [place], [address] [place] [address] 03/04/2024 10:45 AM EST Imaging Radiology [facility] [place] [address] [place] [address] Health Maintenance Due Date Last Done Comments [...]
--- OUTSIDE RECORDS SUMMARY | 2024-05-14 02:52 | External Medical Summary ---
Author Name Unknown Address Unknown Organization K0G:LABORATORY [facility] [place] [facility] - [address] [place] [address] Laboratory Report Ordering Provider Test Date Status BOUBACAR LARA 02/13/2024 12:18:18 Final Observation Date Value Abnormality Reference (Units ) Status WBC, Total 02/13/2024 12:18:18 22.70 Above high normal 4 .00-10.80 (K/uL) Final RBC 02/13/2024 12:18:18 4.00 3.85-5.15 (M/uL) Final Hemoglobin 02/13/2024 12:18:18 11.0 Below low normal 12 .0-15.3 (g/dL) Final Anemia reflex testing trigge rs on a HGB < 12.0 for Females and HGB < 13.0 for Males in accordance with the WHO Anemia Guidelines
Anemia reflex testing triggers on a HGB < 12.0 for Females and HGB < 13.0 for Males in accordance with the WHO Anemia Guidelines HCT 02/13/2024 12:18:18 34.2 Below low normal 36. 0-45.2 (%) Final MCV 02/13/2024 12:18:18 85.5 81.5-97.5 (fL) Final MCH 02/13/2024 12:18:18 27.5 27.0-34.0 (pg) Final MCHC 02/13/2024 12:18:18 32.2 32.0-36.0 (g/dL) Final RDW 02/13/2024 12:18:18 15.2 11.5-15.5 (%) Final Platelets 02/13/2024 12:18:18 304 140-400 (K /uL) Final MPV 02/13/2024 12:18:18 10.7 6.6-11.1 ( fL) Final Performing Location LABORATORY [facility] [place] 57[address] 0 - [address] [place] [address]
--- OUTSIDE RECORDS SUMMARY | 2024-05-14 02:52 | External Medical Summary | Summary of Care ---
Author Name Unknown Organization [facility] Address [address] [place] [address] Phone [phone] Care Team Providers Care Clinical Psychology Professor Name Role Phone Unavailable Primary Care Provider Unavailabl e Encounter Details Date Type Department Care Team (Late st Contact Info) Description 02/14/2024 Telephone Dry Cleaning Counter Clerk Obstetrics Maternal Medicine, [place] [address] [place], [place] [phone] [place], Nurse Dry Cleaning Counter Clerk [facility] [address] [place], [place] [phone] Allergies Active Allergy Reactions Criticality Noted Date [...] currently 02/13/2024 Overview (02/13/2024): Last delivery at [facility]. From dates given pt would have [...] 02/14/2024) Immunizations Name Administration Dates Next Due Hepatitis [...] Jil Green [address] [place] [address] Adrianna Sampson CRNP [address] [place] [address] Health Maintenance Due Date Last Done Comments [...]
--- OUTSIDE RECORDS SUMMARY | 2024-05-14 02:52 | External Medical Summary ---
Author Name Unknown Address Unknown Organization K01:LABORATORY C - [address] [facility] [address] Laboratory Report Ordering Provider Test Date Status BOUBACAR LARA 02/13/2024 12:18:18 Final Observation Date Value Abnormality Reference (Units ) Status Hep C Ab 02/13/2024 12:18:18 Negative Negative Final Further HCV quantitative keara ting not performed per protocol. Performing Location LABORATORY [facility] - [address] [facility] [address]
--- OUTSIDE RECORDS SUMMARY | 2024-05-14 02:52 | External Medical Summary | Summary of Care ---
Author Name Unknown Organization [facility] Address [address] [place] [address] Phone [phone] Care Team Providers Care Guyline Operator Name Role Phone Unavailable Primary Care Provider Unavailabl e Reason for Visit * Reason Comments Outpatient Testing Encounter Details Date Type Department Care Team (Late st Contact Info) Description 02/13/2024 12:30 PM EST Laboratory Laboratory, [facility] [address] [place] [phone] [facility] [address] [place] [address] Short cervix during in second trimester; High-risk in second trimester Allergies Active Allergy [...] on file documented as of this encounter Plan of Treatment Upcoming Encounters Date Type Department Care Team (Late st Contact Info) Description 02/28/2024 1:30 PM EST Office Visit Gynecology/Obstetrics [facility] Green [address] [place] [address] Adrianna Sampson CRNP [address] [place] [address] Pending Results Name Type Priority Associated Diagnoses Date /Time RUBELLA IGG ANTIBODY Lab Routine Short cervix [...] in second trimester 02/13/2024 12:18 PM EST ANEMIA CBC Lab Routine Short cervix during in second trimester High-risk in second trimester 02/13/2024 12:18 PM EST DIFFERENTIAL, AUTOMATED Lab Routine Short cervix during in second trimester High-risk in second trimester 02/13/2024 12:18 PM EST ANEMIA REFLEX CHEMISTRY HOLD Lab Routine Short cervix during in second trimester High-risk in second trimester 02/13/2024 12:18 PM EST HEPATITIS C ANTIBODY Lab Routine Short cervix during in second trimester High-risk in second trimester 02/13/2024 12:18 PM EST HEPATITIS C RNA ADD ON Lab Routine Short cervix during in second trimester High-risk in second trimester 02/13/2024 12:18 PM EST SYPHILIS ANTIBODY SCREEN Lab Routine Short cervix during in second trimester High-risk in second trimester 02/13/2024 12:18 PM EST TYPE AND SCREEN Lab Routine Short cervix during in second trimester High-risk in second trimester 02/13/2024 12:29 PM EST Health Maintenance Due Date Last Done [...] Diagnoses Diagnosis Short cervix during in second trimester High-risk in second trimester documented in this encounter
--- OUTSIDE RECORDS SUMMARY | 2024-05-14 02:52 | External Medical Summary ---
Author Name Unknown Address Unknown Organization K0G:LABORATORY [place] [facility] - [address] [place] [address] Laboratory Report Ordering Provider Test Date Status BOUBACAR LARA 02/13/2024 12:18:18 Final Observation Date Value Abnormality Reference (Units ) Status Nucleated erythrocytes/100 leukocytes [Ratio] in Blood by Automated count 02/13/2024 12:18:18 Final Performing Location LABORATORY [place] [facility] 0 - [address] [place] [address]
--- OUTSIDE RECORDS SUMMARY | 2024-05-14 02:52 | External Medical Summary | Summary of Care ---
Author Name Unknown Organization [facility] Address [address] [place] [address] Phone [phone] Care Team Providers Care Anatomical Embalmer Name Role Phone Unavailable Primary Care Provider Unavailabl e Reason for Visit * Reason Onset Date Comments Test Results 02/13/2024 Unexpected or In determinate Result Encounter Details Date Type Department Care Team (Late st Contact Info) Description 02/13/2024 Telephone Gynecology/Obstetrics [facility] [address] [place] [address] Adrianna Sampson CRNP [address] [place] [address] Test Results (Unexpected or Indeterminate ... Allergies [...] unexpected or indeterminate finding on Livia Barcenas ([id number]) and asks that you review the following [...] Thank you, CHRISTINE Valente Client Service Rep [facility] documented in this encounter Plan of [...]
--- OUTSIDE RECORDS SUMMARY | 2024-05-14 02:52 | External Medical Summary ---
Author Name Unknown Address Unknown Organization K01:LABORATORY [facility] [place] - [address] [facility] [place] [facility] [address] Laboratory Report Ordering Provider Test Date Status BOUBACAR LARA 02/13/2024 12:18:18 Final Observation Date Value Abnormality Reference (Units ) Status Hep B surface Ag 02/13/2024 12:18:18 Negative Neg ative Final Performing Location [facility] [address] [facility] [address]
--- OUTSIDE RECORDS SUMMARY | 2024-05-14 02:52 | External Medical Summary | Summary of Care ---
Author Name Unknown Organization [facility] Address [address] [place] [address] Phone [phone] Care Team Providers Care Floorworker Lasting Name Role Phone Unavailable Primary Care Provider Unavailabl e Reason for Visit * Reason Comments Outpatient Testing Encounter Details Date Type Department Care Team (Late st Contact Info) Description 02/13/2024 12:30 PM EST Laboratory Laboratory, [facility] [address] [place] [phone] [facility] [address] [place] [address] Short cervix during in second trimester; High-risk [...] Jil Green [address] [place] [address] Adrianna Sampson CRNP [address] [place] [address] Pending Results Name Type Priority Associated Diagnoses [...]
--- OUTSIDE RECORDS SUMMARY | 2024-05-14 02:52 | External Medical Summary | Summary of Care ---
Author Name Unknown Organization [facility] Address [address] [place] [address] Phone [phone] Care Team Providers Care Monitor Technician Name Role Phone Unavailable Primary Care Provider Unavailabl e Reason for Visit * Reason Comments Nurse Documentation Encounter Details Date Type Department Care Team (Late st Contact Info) Description 02/07/2024 8:30 AM EST Nurse Only Gynecology/Obstetrics [facility] [address] [address] , Nurse Machine Joint Cutter [facility] [address] Nurse Documentation Allergies Active Allergy Reactions Criticality Noted Date Comments Food (See Comments) 08/11/2003 Banana allergy documented as of this encounter (statuses as of 02/07/2024) Medications Forte Oral Tablet Take by mouth. Active documented as of this encounter (statuses as of 02/07/2024) Immunizations Name Administration Dates Next Due Hepatitis [...] as of this encounter Progress Notes * Lyly Lin LPN - 02/07/2024 8:38 AM EST Spoke with pt for nob. Pt said lmp was 08/17/23. Pt has not had any care she said she did go to [facility] last week and just had blood work nothing else done. Pt has history of Autism. documented in this encounter Plan of Treatment Upcoming Encounters Date Type Department Care Team (Late st Contact Info) Description 02/13/2024 10:15 AM EST Imaging Radiology [facility] [address] [address] 02/13/2024 11:00 AM EST Office Visit Gynecology/Obstetrics [facility] [address] [address] Rosa Simmons PA-C [address] [address] Health Maintenance Due Date Last Done Comments [...]
--- OUTSIDE RECORDS SUMMARY | 2024-05-14 02:53 | External Medical Summary | Summary of Care ---
Author Name Unknown Organization [facility] Address [address] [place] [address] Phone [phone] Care Team Providers Care Ceramics Engineer Name Role Phone Unavailable Primary Care Provider Unavailabl e Encounter Details Date Type Department Care Team (Late st Contact Info) Description 02/01/2024 Telephone Gynecology/Obstetrics [facility] [address] [place] [address] Anand Jackson MD [address] [facility] [place] [address] Allergies Active Allergy Reactions Criticality Noted Date Comments Food (See Comments) 08/11/2003 Banana allergy documented as of this encounter (statuses as of 02/01/2024) Medications No known medicationsdocumented as of this encounter (statuses as of 02/01/2024) Immunizations Name Administration Dates Next Due DTP/HIB [...] encounter Miscellaneous Notes * Telephone Encounter - Nitish Cortes OSA - 02/01/2024 3:03 PM EST Reason for patient's call: returning call Caller was transferred to [facility] at the nurse line. * Telephone Encounter - Mica Patterson OSA - 02/01/2024 2:46 PM EST LMOM with nurse intake and . Requested she call so we can schedule the ultrasound prior to the appointment Sunday. Put in a request to Adrianna for the US order. * Telephone Encounter - Lindy Mares LPN - 02/01/2024 1:58 PM EST Yes, she has not had previous care. * Telephone Encounter - Mica Patterson OSA - 02/01/2024 1:15 PM EST Does patient need dating US? Note says she is 24-25 weeks * Telephone Encounter - Kuldeep Ely RN - 02/01/2024 11:12 AM EST Pt called to schedule her first NOB appt. LMP End of July, ? 08/16 Were you using any type of control? No Any bleeding or any severe pelvic pain? No Are you taking any vitamins? Yes By LMP pt is approx 24-25 wks. Pt will need scheduled between 8-12 weeks Please assist pt with scheduling intake/NOB/US Thank you! Kuldeep Ely RN * Telephone Encounter - Lindy Mares LPN - 02/01/2024 9:36 AM EST Web inquiry received Name: Livia Barcenas Email: [email or web address] Phone: [phone] Zip code: [address] : 1995 Additional Information: Currently left message for patient to call office documented in this encounter Plan of Treatment Upcoming Encounters Date Type Department Care Team (Late st Contact Info) Description 02/07/2024 8:30 AM EST Nurse Only Gynecology/Obstetrics [facility] [address] [place] [address] Gw, Nurse Morning Babysitter New [address] [place] [address] 02/08/2024 1:45 PM EST Office Visit Gynecology/Obstetrics [facility] [address] [place] [address] Adrianna Sampson CRNP [address] [place] [address] Health Maintenance Due Date Last Done Comments [...]
--- OUTSIDE RECORDS SUMMARY | 2024-05-14 02:53 | External Medical Summary | Summary of Care ---
Author Name Unknown Organization [facility] Address [address] [place] [address] Phone [phone] Care Team Providers Care Bacon Stringer Name Role Phone Unavailable Primary Care Provider Unavailabl e Encounter Details Date Type Department Care Team (Late st Contact Info) Description 02/01/2024 Telephone [facility] [address] [employer] [address] [place] [address] Anand Jackson MD [address] [facility] [place] [address] Allergies Active Allergy Reactions Criticality Noted Date [...] 9:36 AM EST Web inquiry received Name: Lviia Barcenas Email: [email or web address] Phone: [phone] Zip code: [address] : 1995 Additional Information: Currently left message for patient to call office documented in this encounter Plan of Treatment Upcoming Encounters Date Type Department Care Team (Late st Contact Info) Description 02/07/2024 8:30 AM EST Nurse Only Gynecology/Obstetrics Jil Green [address] [place] [address] [place] [place] [address] Gw, Nurse Legal Arbitrator [address] [place] [address] 02/08/2024 1:45 PM EST Office Visit Gynecology/Obstetrics Jil Green [address] [place] [address] Adrianna Sampson CRNP [address] [place] [address] Health Maintenance Due Date Last Done Comments [...]
--- OUTSIDE RECORDS SUMMARY | 2024-05-14 02:53 | External Medical Summary | Summary of Care ---
Author Name Unknown Organization [facility] Address [address] [place] [address] Phone [phone] Care Team Providers Care Spa Supervisor Name Role Phone Unavailable Primary Care Provider Unavailabl e Encounter Details Date Type Department Care Team (Late st Contact Info) Description 02/01/2024 Telephone Gynecology/Obstetrics [facility] [address] [address] [place] [address] Anand Jackson MD [address] [facility] [address] Allergies Active Allergy Reactions Criticality Noted Date Comments Food (See Comments) 08/11/2003 Banana allergy documented as of this encounter (statuses as of 02/01/2024) Medications No known medicationsdocumented as of this encounter (statuses as of 02/01/2024) Immunizations Name Administration Dates Next Due Hepatitis [...] Web inquiry received Name: Livia Barcenas Email: [email or web address] Phone: [phone] Zip code: [address] : 1995 Additional Information: Currently left message [...]
--- OUTSIDE RECORDS SUMMARY | 2024-05-14 02:53 | External Medical Summary | Summary of Care ---
Author Name Unknown Organization [facility] Address [address] [place] [address] Phone [phone] Care Team Providers Care Circuit Designer Name Role Phone Unavailable Primary Care Provider Unavailabl e Encounter Details Date Type Department Care Team (Late st Contact Info) Description 02/01/2024 Telephone [facility] [address] [place] [address] Anand Jackson MD [address] [place] [address] Allergies Active Allergy Reactions Criticality [...] Web inquiry received Name: Livia Barcenas Email: [email or web address] Phone: [phone] Zip code: [address] : 1995 Additional Information: Currently left message [...]
--- OUTSIDE RECORDS SUMMARY | 2024-05-14 02:53 | External Medical Summary | Summary of Care ---
Author Name Unknown Organization [facility] Address [address] [place] [address] Phone [phone] Care Team Providers Care Water Safety Teacher Name Role Phone Unavailable Primary Care Provider Unavailabl e Encounter Details Date Type Department Care Team (Late st Contact Info) Description 02/01/2024 Telephone [facility] [address] [place] [address] Anand Jackson MD [address] [facility] [place] [address] Allergies Active Allergy Reactions Criticality [...] her first NOB appt. LMP End of May, ? 08/16 Were you using any type of control? No Any bleeding or any severe pelvic pain? No Are you taking any vitamins? Yes By LMP pt is approx 24-25 wks. Pt will need scheduled between 8-12 weeks Please assist pt with scheduling intake/NOB/US Thank you! Kuldeep Ely, RN * Telephone Encounter - Lindy Mares LPN - 02/01/2024 9:36 AM EST Web inquiry received Name: Livia Barcenas Email: [email or web address] Phone: [phone] Zip code: [address] : 1995 Additional Information: Currently left message [...]
--- OUTSIDE RECORDS SUMMARY | 2024-05-14 02:53 | External Medical Summary | Summary of Care ---
Author Name Unknown Organization [facility] Address [address] [place] [address] Phone [phone] Care Team Providers Care Dye Range Tender Name Role Phone Unavailable Primary Care Provider Unavailabl e Encounter Details Date Type Department Care Team (Late st Contact Info) Description 02/01/2024 Telephone Gynecology/Obstetrics [facility] [address] [place] [address] Anand Jackson MD [address] [facility] [place] [address] Allergies Active Allergy Reactions Criticality Noted Date [...] Encounter - Mica Patterson OSA - 02/01/2024 3:21 PM EST Spoke with patient and got scheduled. * Telephone Encounter - Nitish Cortes OSA - 02/01/2024 3:03 PM EST Reason for patient's call: returning call Caller was transferred to [facility] at the nurse line. * Telephone [...] 24-25 weeks * Telephone Encounter - Kuldeep lEy RN - 02/01/2024 11:12 AM EST Pt [...] 9:36 AM EST Web inquiry received Name: Liviasj Barcenas Email: [email or web address] Phone: [phone] Zip code: [address] : 1995 Additional Information: Currently left message for patient to call office documented in this encounter Plan of Treatment Upcoming Encounters Date Type Department Care Team (Late st Contact Info) Description 02/07/2024 8:30 AM EST Nurse Only Gynecology/Obstetrics [facility] [address] [place] [address] , Nurse Truck Rental Clerk New [address] [place] [address] 02/13/2024 10:15 AM EST Imaging Radiology [facility] [address] [place] [address] Health Maintenance Due Date Last Done Comments [...]
--- OUTSIDE RECORDS SUMMARY | 2024-05-14 02:53 | External Medical Summary | Summary of Care ---
Author Name Unknown Organization [facility] Address [address] [place] [address] Phone [phone] Care Team Providers Care Kiln Head House Operator Name Role Phone Unavailable Primary Care Provider Unavailabl e Encounter Details Date Type Department Care Team (Late st Contact Info) Description 02/01/2024 Telephone [facility] [address] [address] [place] [address] Anand Jackson MD [address] [place] [address] Allergies Active Allergy Reactions Criticality [...] encounter Miscellaneous Notes * Telephone Encounter - Kuldeep Ely RN [...] Web inquiry received Name: Livia Barcenas Email: [email or web address] Phone: [phone] Zip code: [address] : 1995 Additional Information: Currently left message [...]
--- OUTSIDE RECORDS SUMMARY | 2024-05-14 02:53 | External Medical Summary | Summary of Care ---
Author Name Unknown Organization [facility] Address [address] [place] [address] Phone [phone] Care Team Providers Care Bundle Person Name Role Phone Unavailable Primary Care Provider Unavailabl e Encounter Details Date Type Department Care Team (Late st Contact Info) Description 02/01/2024 Telephone [facility]necology[facility] [address] [place] [address] Anand Jackson MD [address] [facility] [address] Allergies Active Allergy Reactions Criticality [...] Web inquiry received Name: Livia Barcenas Email: [email or web address] Phone: [phone] Zip code: [address] : 1995 Additional Information: Currently left message [...]
[2024-05-14] MEDS: ACETAMINOPHEN 500 MG TAB PO PRN (04:36)
[2024-05-14 08:18] LABS: Hematocrit (blood only) 29.7 % (37.0-47.0); Hemoglobin 9.4 g/dl (12.0-16.0); Mean Corpuscular Hemoglobin 25.2 pg (25.0-34.0); Mean Corpuscular Hgb Conc 31.6 g/dL (32.0-36.0); Mean Corpuscular Volume 79.6 fL (80.0-100.0); Mean Platelet Volume 11.8 fL (9.4-12.4); Platelet Count 270 K/uL (130-400); RDW Coefficient of Variation 16.9 % (11.5-14.5); RDW Standard Deviation 48.4 fL (36.4-46.3); Red Blood Count 3.73 M/uL (4.20-5.40); White Blood Count 29.86 K/ul (4.8-10.8)
--- NOTE | 2024-05-14 08:53 | Obstetrical Progress Note ---
Date of Service May 14, 2024 Assessment & Plan Admission and Anticipated Discharge Date Admission Date: May 13, 2024 Subjective Patient is seen and examined. She feels well, no complaints. Ambulating without dizziness Voiding without difficulty Tolerating regular diet with out N&V Bleeding is minimal No fever/ chills/ CP/ SOB/ N&V/ Leg pain/ dysuria/ sore throat/ cold symptoms/ tootache Bottle feeding without problems Vital Signs Temp Pulse Resp BP Pulse Ox O2 Del Method 05/14/24 02:35 36.7 C 97 H 18 114/74 97 Room Air 05/13/24 23:30 36.8 C 105 H 18 115/78 99 Room Air Lab Results 05/13/24 05/14/24 Range/Units 18:44 07:38 WBC 33.68 H* 29.86 H (4.8-10.8) K/ul RBC 4.55 3.73 L (4.20-5.40) M/uL Hgb 11.3 L 9.4 L (12.0-16.0) g/dl Hct 37.7 29.7 L (37.0-47.0) % MCV 82.9 79.6 L (80.0-100.0) fL MCH 24.8 L 25.2 (25.0-34.0) pg MCHC 30.0 L 31.6 L (32.0-36.0) g/dL RDW Std Deviation 51.8 H 48.4 H (36.4-46.3) fL RDW Coeff of Estevan 17.4 H 16.9 H (11.5-14.5) % Plt Count 299 270 (130-400) K/uL MPV 11.3 11.8 (9.4-12.4) fL Treponema pallidum Ab Negative (Negative) PE: General: Alert, orientedx3, NAD poor dental status, multiple carries Abd: soft, NT, fundus firm, below Umbilicus Perineum intact, Lochia rubra minimal Ext; NT, no edema AP: 28 yo s/p , precipitous delivery, ppd# 1 VSS Afebrile doing well Elevated WBCC , asymptomatic, Agrees for extra blood work, U/A, UDS Continue routine care All questions were answered Results & Data Vital Signs (Past 12 Hours) Vital Signs Temp Pulse Resp BP Pulse Ox O2 Del Method 05/14/24 02:35 36.7 C 97 H 18 114/74 97 Room Air 05/13/24 23:30 36.8 C 105 H 18 115/78 99 Room Air
[2024-05-14] MEDS: PRENATAL VITAMIN 1 TAB PO SCH (08:57)
[2024-05-14 09:53] LABS: BUN Creatinine Ratio 16.3 (10-20); Bilirubin,Total 0.5 mg/dl (0.2-1.0); Calcium 8.9 mg/dl (8.6-10.3); Creatinine Clr Calc Pharmacy 126.7 ml/min; Globulin 3.1 gm/dl (2.5-4.0); Potassium 3.1 mmol/L (3.5-5.1); Total Protein 6.1 gm/dl (6.0-8.3)
[2024-05-14 09:56] LABS: Basophils % (auto) 0.4 %; Eosinophils # (auto) 0.03 K/uL (0.00-0.50); Eosinophils % (auto) 0.1 %; Hematocrit (blood only) 29.8 % (37.0-47.0); Hemoglobin 9.4 g/dl (12.0-16.0); Immature Granulocytes # (auto) 0.36 K/uL (0.01-0.20); Immature Granulocytes % (auto) 1.3 %; Lymphocytes # (auto) 4.84 K/uL (1.20-3.40); Lymphocytes % (auto) 17.8 %; Mean Corpuscular Hgb Conc 31.5 g/dL (32.0-36.0); Mean Corpuscular Volume 79.3 fL (80.0-100.0); Mean Platelet Volume 11.2 fL (9.4-12.4); Monocytes # (auto) 1.87 K/uL (0.11-0.59); Monocytes % (auto) 6.9 %; Neutrophils # (auto) 20.06 K/uL (1.40-6.50); Neutrophils % (auto) 73.5 %; Platelet Count 267 K/uL (130-400); RDW Standard Deviation 48.8 fL (36.4-46.3); Red Blood Count 3.76 M/uL (4.20-5.40); White Blood Count 27.26 K/ul (4.8-10.8)
[2024-05-14 10:20] LABS: Appearance Urine Cloudy (Clear); Bacteria Urine Automated None Seen (None Seen); Bilirubin Urine 1+ (Negative); Blood Urine 3+ (Negative); Color Urine Dark Yellow; Glucose Urine UA Negative (Negative); Ketones Urine Trace (Negative); Leukocyte Esterase Urine 1+ (Negative); Nitrite Urine Negative (Negative); Protein Urine 1+ (Negative); RBC Urine Automated >20 /hpf (0-2); Urobilinogen Urine Negative (Negative); WBC Urine Automated 21-50 /hpf (0-5); pH Urine 5.5 (4.5-7.5)
[2024-05-14] MEDS: POTASSIUM CHLORIDE 10 MEQ TABCR PO SCH (10:58)
[2024-05-14] MEDS: ACETAMINOPHEN 325 MG TAB PO PRN (10:58)
[2024-05-14 11:01] LABS: Amphetamines+Metham, Urine Neg (Neg); Barbiturates, Urine Neg (Neg); Benzodiazepine, Urine Neg (Neg); Cocaine, Urine Neg (Neg); Fentanyl, Urine Neg (Neg); MDMA (Ecstacy), Urine Neg (Neg); Marijuana, Urine Pos (Neg); Methadone, Urine Neg (Neg); Opiate, Urine Pos (Neg); Phencyclidine, Urine Neg (Neg)
[2024-05-14] MEDS: bisacodyL 5 MG TABEC PO SCH (21:31)
[2024-05-15 00:27] VITALS: O2SAT 99
[2024-05-15 06:30] LABS: Hematocrit (blood only) 29.6 % (37.0-47.0); Hemoglobin 9.3 g/dl (12.0-16.0); Mean Corpuscular Hemoglobin 25.8 pg (25.0-34.0); Mean Corpuscular Hgb Conc 31.4 g/dL (32.0-36.0); Mean Platelet Volume 11.5 fL (9.4-12.4); Platelet Count 293 K/uL (130-400); RDW Coefficient of Variation 17.1 % (11.5-14.5); RDW Standard Deviation 50.6 fL (36.4-46.3); Red Blood Count 3.61 M/uL (4.20-5.40); White Blood Count 20.64 K/ul (4.8-10.8)
[2024-05-15 06:54] LABS: Basophils % (auto) 0.5 %; Eosinophils # (auto) 0.24 K/uL (0.00-0.50); Eosinophils % (auto) 1.2 %; Immature Granulocytes # (auto) 0.42 K/uL (0.01-0.20); Lymphocytes # (auto) 5.38 K/uL (1.20-3.40); Lymphocytes % (auto) 26.1 %; Monocytes # (auto) 1.89 K/uL (0.11-0.59); Monocytes % (auto) 9.2 %; Neutrophils # (auto) 12.61 K/uL (1.40-6.50)
[2024-05-15 11:23] VITALS: BP 111/71; RESP 16; TEMP 97.9
--- NOTE | 2024-05-15 11:57 | Obstetrical Progress Note ---
Date of Service May 15, 2024 Subjective Ambulation: ambulating normally Voiding: no voiding problems Passing Gas:: Yes Diet Tolerance:: regular diet Lochia:: Small Feeding Type:: bottle feeding Current Pain Level(1-10): 0 plans to go home today. doing well Physical Exam Constitutional WD/WN, vitals as above Gastrointestinal (Abdomen) Inspection/Auscultation: abdomen normal to inspection abdomen soft and non-tender fundus firm Musculoskeletal Extremities: extremities normal to inspection Skin no rashes, warm and dry Neurologic patellar DTR's 2+ bilat, sensation intact Psychiatric A+Ox3, euthymic affect Results & Data Vital Signs (Past 12 Hours) Vital Signs Temp Pulse Resp BP Pulse Ox O2 Del Method 05/15/24 10:00 36.6 C 93 H 16 111/71 99 Room Air Laboratory Results 05/13/24 05/14/24 05/14/24 18:44 07:38 09:11 WBC 33.68 H* 29.86 H RBC 4.55 3.73 L Hgb 11.3 L 9.4 L Hct 37.7 29.7 L MCV 82.9 79.6 L MCH 24.8 L 25.2 MCHC 30.0 L 31.6 L RDW Std Deviation 51.8 H 48.4 H RDW Coeff of Estevan 17.4 H 16.9 H Plt Count 299 270 MPV 11.3 11.8 Immature Gran % (Auto) Neut % (Auto) Lymph % (Auto) Trinity % (Auto) Eos % (Auto) Baso % (Auto) Neut # (Auto) Lymph # (Auto) Trinity # (Auto) Eos # (Auto) Baso # (Auto) Immature Gran # (Auto) Sodium 135 L Potassium 3.1 L Chloride 105 Carbon Dioxide 24 Anion Gap 6 BUN 8 Creatinine 0.49 L Est Cr Clr Drug Dosing 126.7 eGFR 129.95 BUN/Creatinine Ratio 16.3 Glucose 109 H Lactate Calcium 8.9 Total Bilirubin 0.5 AST 24 ALT 12 Alkaline Phosphatase 143 H Total Protein 6.1 Albumin 3.0 L Globulin 3.1 Albumin/Globulin Ratio 1.0 Urine Color Urine Appearance Urine pH Ur Specific [place] Urine Protein Urine Glucose (UA) Urine Ketones Urine Blood Urine Nitrite Urine Bilirubin Urine Urobilinogen Ur Leukocyte Esterase Urine WBC (Auto) Urine RBC (Auto) U Hyaline Cast (Auto) U Epithel Cells (Auto) Urine Bacteria (Auto) Urine Opiates Screen Ur Methadone, Qual Urine Fentanyl Screen Urine Barbiturates Ur Phencyclidine (PCP) U Amphetamin/Meth Scrn MDMA (Ecstasy) Screen U Benzodiazepines Scrn Ur Cocaine Metabolite U Marijuana (THC) Screen Treponema pallidum Ab Negative 05/14/24 05/14/24 05/15/24 09:14 Unknown 05:43 WBC 27.26 H 20.64 H RBC 3.76 L 3.61 L Hgb 9.4 L 9.3 L Hct 29.8 L 29.6 L MCV 79.3 L 82.0 MCH 25.0 25.8 MCHC 31.5 L 31.4 L RDW Std Deviation 48.8 H 50.6 H RDW Coeff of Estevan 17.0 H 17.1 H Plt Count 267 293 MPV 11.2 11.5 Immature Gran % (Auto) 1.3 2.0 Neut % (Auto) 73.5 61.0 Lymph % (Auto) 17.8 26.1 Trinity % (Auto) 6.9 9.2 Eos % (Auto) 0.1 1.2 Baso % (Auto) 0.4 0.5 Neut # (Auto) 20.06 H 12.61 H Lymph # (Auto) 4.84 H 5.38 H Trinity # (Auto) 1.87 H 1.89 H Eos # (Auto) 0.03 0.24 Baso # (Auto) 0.10 0.10 Immature Gran # (Auto) 0.36 H 0.42 H Sodium Potassium Chloride Carbon Dioxide Anion Gap BUN Creatinine Est Cr Clr Drug Dosing eGFR BUN/Creatinine Ratio Glucose Lactate 1.5 Calcium Total Bilirubin AST ALT Alkaline Phosphatase Total Protein Albumin Globulin Albumin/Globulin Ratio Urine Color Dark Yellow Urine Appearance Cloudy A Urine pH 5.5 Ur Specific [place] 1.040 H Urine Protein 1+ H Urine Glucose (UA) Negative Urine Ketones Trace H Urine Blood 3+ H Urine Nitrite Negative Urine Bilirubin 1+ H Urine Urobilinogen Negative Ur Leukocyte Esterase 1+ H Urine WBC (Auto) 21-50 H Urine RBC (Auto) >20 H U Hyaline Cast (Auto) 3-5 H U Epithel Cells (Auto) 3-5 H Urine Bacteria (Auto) None Seen Urine Opiates Screen Pos H Ur Methadone, Qual Neg Urine Fentanyl Screen Neg Urine Barbiturates Neg Ur Phencyclidine (PCP) Neg U Amphetamin/Meth Scrn Neg MDMA (Ecstasy) Screen Neg U Benzodiazepines Scrn Neg Ur Cocaine Metabolite Neg U Marijuana (THC) Screen Pos H Treponema pallidum Ab
[2024-05-15 12:55] VITALS: PULSE 80
[2024-05-16 12:56] LABS: Codeine Urine 2030 ng/mL (<50); Hydrocodone Urine NEGATIVE ng/mL (<50); Hydromor Urine NEGATIVE ng/mL (<50); Marijuana Quant, GCMS Urine 375 ng/mL (<5); Morphine Urine 329 ng/mL (<50); Norhydrocodone Conf Ur 66 ng/mL (<50); Noroxycodone Urine NEGATIVE ng/mL (<50); Oxycodone Urine NEGATIVE ng/mL (<50); Oxymorph Urine NEGATIVE ng/mL (<50)
--- OUTSIDE RECORDS SUMMARY | 2024-05-16 21:46 | External Medical Summary | Summary of Care ---
Author Name Unknown Organization [facility] Address [address] [place] [address] Phone [phone] Care Team Providers Care Jewelry Sales Associate Name Role Phone Unavailable Primary Care Provider Unavailabl e Encounter Details Date Type Department Care Team (Late st Contact Info) Description 05/13/2024 Result Scan Unspecified Department Clarence Elder MD [address] [place] [address] <No scans attached> Allergies Active Allergy Reactions Criticality Noted Date Comments Food (See Comments) 08/11/2003 Banana allergy documented as of this encounter (statuses as of 05/16/2024) Medications Forte Oral Tablet Take by mouth. Active Iron-Vitamin C 65-125 MG Oral Tablet (Vitron C)Indications:Ant epartum anemia complicating Take 1 Tablet by mouth in the morning and 1 Tablet before bedtime. 60 Tablet 3 4 Active documented as of this encounter (statuses as of 05/16/2024) Active Problems Problem Noted Date Diagnosed Date [...] cm without funneling. First delivery at [facility]; unsure exact gestational age but "near [...] Overview (02/13/2024): Last delivery at [facility]. From dates given pt would [...] as of this encounter (statuses as of 05/16/2024) Immunizations Name Administration Dates Next Due Hepatitis [...] have money to get more. Sometimes true [place] Depression Scale Answer Date Recorded [place] Depression Scale Total 13 04/17/2024 The thought [...] Care Team (Late st Contact Info) Description 06/11/2024 1:30 PM EDT Telemedicine Gynecology/Obstetrics Jil Green [address] [address] Adrianna Sampson CRNP [address] [place] [address] 06/27/2024 10:15 AM EDT Office Visit Gynecology/Obstetrics Jil Green [address] [address] Em Griffin PA-C [address] [place] [address] Health Maintenance Due Date Last Done Comments [...] on patient's age to complete this topic Meningitis B Vaccine (Bexsero/Trumemba) Aged Out No longer eligible based on [...] Procedure Name Priority Date/Time Associated Diagnosis Comments PATHOLOGY SCANNED RESULT 05/13/2024 documented in this encounter Results * PATHOLOGY SCANNED RESULT (05/13/2024) 05/13/2024 us Clarence Elder MD PATHOLOGY Final Resul t documented in this encounter Additional Health Concerns Active Problems Noted Date Diagnosed Date OB Reminders 03/04/2024 documented as of this encounter
--- OUTSIDE RECORDS SUMMARY | 2024-05-16 21:46 | External Medical Summary | Summary of Care ---
Author Name Unknown Organization [facility] Address [address] [place] [address] Phone [phone] Care Team Providers Care Diaper Machine Tender Name Role Phone Unavailable Primary Care Provider Unavailabl e Reason for Visit * Reason Onset Date Comments Anemia Follow-Up 05/14/2024 Encounter Details Date Type Department Care Team (Late st Contact Info) Description 05/14/2024 4:00 PM [facility] [place] [address] [place] [address] Clinic, Anemia [address] [place] [address] Iron deficiency anemia, unspecified iron deficiency anemia type* Allergies Active Allergy Reactions Criticality Noted Date Comments Food (See Comments) 08/11/2003 Banana allergy documented as of this encounter (statuses as of 05/14/2024) Medications Forte Oral Tablet Take by mouth. Active Iron-Vitamin C 65-125 MG Oral Tablet (Vitron C)Indications:Ant epartum anemia complicating Take 1 Tablet by mouth in the morning and 1 Tablet before bedtime. 60 Tablet 3 4 Active documented as of this encounter (statuses as of 05/14/2024) Active Problems Problem Noted Date Diagnosed Date [...] 1.8 cm without funneling. First delivery at [facility]; unsure exact gestational age but "near term" [...] currently 02/13/2024 Overview (02/13/2024): Last delivery at [facility]. From dates given pt would [...] as of this encounter (statuses as of 05/14/2024) Immunizations Name Administration Dates Next Due Hepatitis [...] have money to get more. Sometimes true [place] Depression Scale Answer Date Recorded [place] Depression Scale Total 13 04/17/2024 The thought [...] of this encounter Progress Notes * Kellie Oviedo RPh - 05/14/2024 1:02 PM EST Patient recently delivered. Anemia Clinic to sign off. Thank you for allowing us to participate in the care of this patient. Thanks, Kellie Oviedo [facility] Clinical Pharmacist [facility] (P: [phone]) 05/14/2024 1:04 PM documented in this encounter Plan of Treatment Upcoming Encounters Date Type Department Care Team (Late st Contact Info) Description 06/11/2024 1:30 PM EDT Telemedicine Gynecology/Obstetrics [facility] [address] [address] Adrianna Sampson CRNP [address] [place] [address] 06/27/2024 10:15 AM EDT Office Visit Gynecology/Obstetrics Jil Green [address] [place] [address] Em Griffin PA-C [address] [place] [address] Health Maintenance Due Date Last Done Comments [...]
== END 2024-05-15 14:20 | disposition home or self-care (01) | DRG 807 ==
LOC: OPB 17:54 → 4S1 17:55 → 4E2 21:54